=== PATIENT | male | born 1975 | race Two or more races ===

== ENCOUNTER → 2016-09-04 | Outpatient (REF) | payer OTHER | END | disposition home or self-care (01) | LOC: M SFHCLERA 12:44 | PROVIDERS: ATTEND Nurse Practitioner Family | DX: M10.9 Gout, unspecified (principal) ==

== ENCOUNTER → 2016-09-04 | Outpatient (CLI) | payer OTHER ==
--- NOTE | 2016-09-04 13:50 | REP ---
LUMBAR SPINE VIEWS, FIVE VIEWS: HISTORY: Left-sided low back pain. COMPARISON STUDY: October 02, 2006 FINDINGS: Lumbar vertebral body heights are preserved. Alignment is normal. There is minimal discogenic spurring anteriorly at L4-5, L2-3, and L1-2. There is a bone island in the L3 vertebral body. Pedicles and posterior elements are intact. There is no evidence of spondylolysis or spondylolisthesis. Psoas margins are symmetric. Sacrum and SI joints are unremarkable. IMPRESSION: Minimal discogenic spurring at several levels. Otherwise negative lumbar spine radiographs. Signed by Venancio Hunter MD 09/04/2016 03:05 P
--- NOTE | 2016-09-04 13:51 | REP ---
Left hip: Three views presented. History: Acute left-sided hip pain. Findings: The left femoral head is smooth and rounded and hip joint space is preserved. Periarticular soft tissues are unremarkable. There is a synovial inclusion cyst in the femoral neck. Head and neck junction morphology is normal. Impression: No acute bony abnormality. Signed by Venancio Hunter MD 09/04/2016 03:05 P
== END | disposition home or self-care (01) ==
LOC: M LRY 12:45
PROVIDERS: ATTEND Nurse Practitioner Family
DX: M47.816 Spondylosis without myelopathy or radiculopathy, lumbar region (principal)

== ENCOUNTER → 2019-06-01 | Outpatient (CLI) | payer OTHER ==
--- NOTE | 2019-06-01 18:54 | REP ---
PET/CT: History: Staging squamous cell carcinoma right retro molar trigone. Assess extent of neoplasm and lymph node involvement. Comparisons: Comparison soft-tissue neck CT study [facility] May 13, 2019. Comparison chest CT study from the same date. TECHNIQUE: 57 minutes following the intravenous injection of a 8.70 mCi dose of F-18 FDG, three-dimensional PET scintigraphy is acquired from the skull base to the proximal thighs. Triplanar noncontrast CT scanning is acquired through the same anatomic range for attenuation correction, and image registration with scan parameters optimized to minimize radiation exposure to the patient. PET scintigraphy and CT datasets were fused and displayed on a workstation with multiplanar and projection display capability. PET/CT Findings: There is quite hypermetabolic uptake in an area along the lateral tonsillar pillar on the right with maximum standard uptake value 22.58. Contralateral tonsillar hypermetabolic uptake is also seen on the left and a smaller area with maximum standard uptake value 7.53. There is mildly hypermetabolic anterior jugular christopher uptake in a small lymph node with maximum standard uptake value 3.49. This lymph node measures 12 mm in short axis dimension. No other hypermetabolic christopher uptake is seen in the head and neck soft tissues. In the chest there is no abnormal hilar or mediastinal hypermetabolic adenopathy. No abnormal pulmonary parenchymal hypermetabolic uptake is seen. No suspicious pulmonary nodule is appreciated. In the abdomen and pelvis, no abnormal hepatic or splenic uptake is seen. Normal adrenals are seen. No abnormal hypermetabolic uptake is seen in the abdomen or pelvis. Impression: There is bilateral lateral wall oral pharyngeal hypermetabolic uptake, right more avid and more extensive than left. There is a suspicious mildly hypermetabolic anterior jugular christopher focus on the right. No other abnormal hypermetabolic uptake. Electronically Signed by Venancio Hunter MD 06/01/2019 07:52 P
== END ==
LOC: M PLARAD 08:33
PROVIDERS: ATTEND Otolaryngology
DX: C06.2 Malignant neoplasm of retromolar area (principal)
CPT/HCPCS: 78815; A9552

== ENCOUNTER → 2019-06-03 | Outpatient (CLI) | payer OTHER ==
[~2019-06-03] MED LIST: NICO1KIT TOP
--- NOTE | 2019-06-04 09:44 | RADONC ---
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 STAGE: Clinical stage III, T3NxM0. 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 He presented to his dentist with an abnormality in his right retromolar trigone area and the dentist referred him to Dr. Abdul who is an oral surgeon in [facility] who biopsied the lesion. It was noted to be a squamous cell carcinoma. CT scans were ordered of the head and neck area in [place]. The CT scan of the neck and soft tissues on 05/13/2019 revealed a somewhat mass-like appearance of the left palatine tonsil which measured up to 1.3 cm. It was felt that this could possibly be related to an infectious or inflammatory process; however, clinical correlation was advised. The mass-like lesion in the right retromolar trigone was noted to measure approximately 2.9 x 1.5 cm and the mass in the left palatine tonsil measured up to 1.3 cm. In summary, a mass was seen clinically, biopsied and shown to be a squamous cell carcinoma in the right retromolar trigone measuring 1.[address] scan of the lung revealed changes consistent with chronic obstructive pulmonary disease. Numerous small lymph nodes were noted in the neck. A PET scan was ordered and the results are back today and that PET scan revealed bilateral lateral wall oropharyngeal hypermetabolic uptake on both sides with the right greater than the left. There was a suspicious hypermetabolic anterior jugular christopher focus on the right, but no other significant abnormal abnormalities noted. The patient saw Dr. Michael Harris who in turn has referred him to radiation oncology for evaluation. It should be noted that the squamous cell carcinoma was p16 positive. PAST MEDICAL HEALTH: The patient has a history of gout. PAST SURGICAL HEALTH: Cyst removal. ANESTHESIA COMPLICATIONS: Denied. FAMILY HISTORY OF CANCER: His mother had colon cancer but was treated and is currently in remission. He had an uncle on his father's side with cancer but he does not know the cell type. He had another uncle with lung cancer. SOCIAL HISTORY: The patient is and lives with his girlfriend who has come with him to this consultation. He smoked for 32 years about one pack per day. Drinking history: He drank pretty heavily in the past. He has never used recreational drugs. ALLERGIES: No known drug allergies/intravenous contrast dye, possible iodine. MEDICATIONS: He does not take any active medications. 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 REVIEW OF SYSTEMS: RESPIRATORY: Denies coughing, dyspnea, hemoptysis, hiccups, pleuritic chest pain or wheezing. PSYCHIATRIC: Denies delusions, hallucinations, depression, euphoria or mood swings. NEUROLOGIC: Denies headaches, disorientation, dizziness, gait changes, insomnia, memory loss, neuropathies, paralysis, seizures, sensory problems or stroke. NECK: Denies masses, muscle weakness, pain or problems with range of motion. He did notice some swelling in the posterior/retromandibular area. This prompted his seeking medical attention for the current situation leading to a biopsy and a diagnosis of squamous cell carcinoma. The lesion is somewhat painful but intermittently so. MUSCULOSKELETAL: Denies arthritis, bone pain, joint pain, muscle weakness, or range of motion issues. INTEGUMENTARY: Denies alopecia, blisters, bruising, dry skin, facial burning, problems with fingernails, photosensitivity, pruritus, rashes or urticaria. HEMATOLOGIC/LYMPHATIC: Denies easy bruising, lymph nodes. GENITOURINARY: Denies dysuria, frequency, hematuria, impotence, incontinence, nocturia, renal stone disease, retrograde ejaculation, scrotal swelling, urgency or urine color changes. GASTROINTESTINAL: Denies changes in bowel habits, constipation, diarrhea, heartburn, dyspepsia, hematemesis, hematochezia, hemorrhoids, melena, nausea, pain, cramping, early satiety or vomiting. HEENT: Denies ear pain, epistaxis, esophagitis, hearing difficulty. He does have dryness of the mouth. Denies oral bleeding. He has a dysgeusia with a strange taste in his mouth. Denies otitis, sinusitis, sputum production. He does have some stomatitis with altered taste. Denies tinnitus. ENDOCRINE: Denies diabetes, hot flashes, thyroid disease. CONSTITUTIONAL: Denies lack of appetite. He does note minimal fatigue. Denies fever, lethargy, malaise, night sweats, rigors, chills or weight changes. CARDIOVASCULAR: Denies arrhythmia, chest pain, dyspnea, edema, orthopnea, palpitations. ALLERGIC/IMMUNOLOGIC: Denies allergies or adverse reactions with the exception to the dye which he was given during a CT scan. PHYSICAL EXAMINATION: VITAL SIGNS: Height 69 inches, weight 220.2, temperature 98, pulse 110, respirations 134, diastolic 94, systolic 134, O2 saturation 97. HEENT: The patient appears to be normocephalic. Examination of the oral cavity however reveals a fungating and large mass extending in the retromolar area for approximately 3 cm and what appears to be some redness, irritation and induration up along the tonsillar pillar and up onto the soft palate. There is induration and fistula formation in this noted lesion. The left tonsillar area shows some erythematous areas over the tonsillar pillar and some vague induration in the left tonsil measuring less than 1 cm. Base of tongue reveals no obvious masses, but the tongue itself as a coat of thick malodorous area of what appears to be oral candidiasis. It scrapes soft somewhat with the tongue depressor but may be an early oral candidiasis infection. Lymphatics: No palpable discrete lymphadenopathy is appreciated in the cervical, supraclavicular, axillary or inguinal lymph node chains. Lungs are clear to auscultation and percussion. Heart regular without murmurs. Abdomen: Without evidence of hepatomegaly, masses, deep abdominal tenderness. Extremities: Without cyanosis, clubbing or edema. Neurologic examination: Grossly physiologic and nonfocal. IMPRESSION: Right-sided retromolar trigone squamous cell carcinoma clinically T3, N0, M0. The PET scan reveals areas of increased metabolic activity in the area of the tumor mass/retromolar trigone. There is also an area in the left palatine tonsillar region which is PET avid as well as to a lesser extent the right sided cervical lymph node at the angle of the mandible which appears to be hypermetabolic, and may represent early metastasis versus inflammation. PLAN OF RADIOTHERAPY: The patient has not been completely staged. I believe that we should determine whether or not the lymph node actually represents metastatic disease at this point. We should also evaluate the left tonsillar area. We know that the tumor involves the right retromolar trigone. I am sending the patient back to Dr. Harris to determine whether or not he would consider biopsying the tonsil/perhaps via tonsillectomy or other choices as per his discretion and consider biopsying the lymph node in the right cervical, upper cervical lymph node chain near the angle of the jaw, which is PET avid on his most recent scan. In addition, the patient will need to be evaluated for prophylactic dental care, and perhaps removal or extraction of teeth as per the direction of Dr. Abdul. He most likely will require local regional radiotherapy to help control the extent of his disease depending upon the outcome of future biopsies/and or resections. Also depending upon these results, he may benefit from chemotherapy, and a feeding tube. The indications, possible side effects as well as alternatives to radiotherapy have been explained to the patient. We are still in the stages of processing the tests he has had thus far and obtaining an opinion from Dr. Harris as to his available surgical options and will further explain the side effects of radiotherapy when we will be able to determine the extent and dose of radiotherapy required to control disease. Consults back to Dr. Harris and Dr. Abdul have been have been made. Thank you for referring this very fine gentleman to us and allowing us the opportunity of participation in his overall management. cc: Bhupendra Abdul, SERA Harris, MD Ml Forman, BEND SORTER KAYD
== END ==
LOC: M ONCR 13:08
PROVIDERS: ATTEND Radiology Radiation Oncology
DX: C06.2 Malignant neoplasm of retromolar area (principal)

== ENCOUNTER 2019-06-29 06:27 | Day surgery (SDC) | payer OTHER ==
[~2019-06-29] VITALS: Ht 175.3 cm; Wt 97.7 kg
[~2019-06-29 06:27] MED LIST changes: +FLUC150T PO; +LR 1,000 ML IV ONE; +dexameTHASONE 4 MG/ML 1ML VIAL (J1100) IV ONE
[2019-06-29] MEDS ORDERED: PROPOFOL 200 MG/20 ML VIAL As Ordered ONE ×2 (07:15→08:04)
[2019-06-29] MEDS ORDERED: METHYLENE BLUE 0.5% (5MG/ML) 10 ML AMP (PROVAYBLUE)(Q9968 PER 1MG) As Ordered ONE (08:03)
[2019-06-29] MEDS ORDERED: OXYMETAZOLINE NASAL SPRAY (AFRIN) As Ordered ONE (08:03)
[2019-06-29] MEDS ORDERED: LIDOCAINE W/EPINEPHRINE 1% 20ML VIAL As Ordered ONE (08:03)
[2019-06-29] MEDS ORDERED: ROCURONIUM BROMIDE 50 MG/5 ML VIAL As Ordered ONE ×2 (08:04→08:55)
[2019-06-29] MEDS ORDERED: LIDOCAINE 2% INJ 100 MG/5 ML SDV (FOR ANES.) As Ordered ONE (08:04)
[2019-06-29] MEDS ORDERED: MIDAZOLAM INJ 2 MG/2 ML VIAL (J2250) As Ordered ONE ×2 (08:05→10:40)
[2019-06-29] MEDS ORDERED: ONDANSETRON 4MG/2ML VIAL (J2405) As Ordered ONE (08:05)
[2019-06-29] MEDS ORDERED: dexameTHASONE 4 MG/ML 1ML VIAL (J1100) As Ordered ONE (08:05)
[2019-06-29] MEDS ORDERED: fentaNYL 100 MCG/2 ML INJECTION (J3010) As Ordered ONE ×2 (08:05→08:56)
[2019-06-29] MEDS ORDERED: ACETAMINOPHEN 1000MG 100ML IV BTL (OFIRMEV) (J0131 PER 10MG) As Ordered ONE (08:54)
[2019-06-29] MEDS ORDERED: METOPROLOL 5 MG/5 ML VIAL As Ordered ONE (09:14)
[2019-06-29] MEDS ORDERED: SUGAMMADEX SODIUM 500 MG/5 ML VIAL (BRIDION) As Ordered ONE (09:51)
[2019-06-29] MEDS ORDERED: oxyCODONE 5MG TAB PO PRN (10:45)
[2019-06-29] MEDS ORDERED: LR 1,000 ML IV SCH ×2 (10:45)
[2019-06-29] MEDS ORDERED: fentaNYL 100 MCG/2 ML INJECTION (J3010) IV PRN (10:45)
[2019-06-29] MEDS ORDERED: ONDANSETRON 4MG/2ML VIAL (J2405) IV PRN (10:45)
[2019-06-29] MEDS ORDERED: HYDROcodone/APAP LIQUID 7.5-325MG 15ML UDC (LORTAB ELIXIR) As Ordered ONE (11:23)
[2019-06-29] MEDS ORDERED: HYDROcodone/APAP LIQUID 7.5-325MG 15ML UDC (LORTAB ELIXIR) PO PRN (11:30)
[2019-06-29 13:55] VITALS: BP 113/58
[2019-07-06] MEDS ORDERED: HYDR1SOL (10:21)
[2019-07-23] MEDS ORDERED: PROC10TA4 PO (13:30)
--- NOTE | 2019-07-25 08:41 | RO ---
DATE OF PROCEDURE: 06/29/2019 PREPROCEDURE DIAGNOSIS: Squamous cell carcinoma of the right retromolar trigone. POSTPROCEDURE DIAGNOSIS: Squamous cell carcinoma of the right retromolar trigone. PROCEDURE: 1. Direct suspension microlaryngoscopy. 2. Left tonsillectomy. SURGEON: Dr. Michael Harris HOSPITAL ADMINISTRATIVE ASSISTANT: ANESTHESIA: General. CLINICAL PREAMBLE: This 43-year-old man presented to the office with a biopsy proven squamous cell carcinoma of the right retromolar trigone area. PET scan revealed hypermetabolic activity on both sides of the oropharynx including the left tonsil. He also has evidence of some activity in the right upper neck as well. In order to complete workup prior to treatment with chemo/radiation for his right retromolar trigone, management options including direct laryngoscopy with possible biopsy as well as excision of the left tonsil have been discussed with the patient to rule out other synchronous primary tumors. Patient understood and consented to the procedure. DESCRIPTION OF OPERATION: Patient was identified in preoperative holding and brought to the operating room in stable condition. In supine position on the operating room table, the patient received general anesthesia followed by oral tracheal intubation without incident. The patient was prepped and draped in the usual fashion for the procedure. Palpation of the oral cavity revealed a large mass over the right retromolar trigone. Some fullness was palpated over the left tonsil region. The upper alveolar ridge was then protected. Dedo-Pilling laryngoscope was introduced. We examined the mucosa of the oral cavity and oropharynx. Friable mass was noted over the right retromolar trigone area extending superior toward the soft palate. The base of tongue was clear of mucosal lesion. No friable tissue was noted over the left tonsil area. The supraglottis, glottis, hypopharynx, pyriform sinuses, and posterior cricoid region were found to be free of mucosal ulceration or mass lesion. At this time, the Dedo laryngoscope was then withdrawn. Attention was turned to perform a left tonsillectomy. The Brigido-Benson mouth gag was carefully inserted and suspended. The left tonsil was then medialized using curved Allis forceps. Using electrocautery, mucosal incision was made over the superior pole of the left tonsil region. The left tonsil capsule was identified and dissection was then carried out along this plane to successfully excise the left tonsil. Hemostasis was achieved using electrocautery. Minor oozing from the friable mass over the right retromolar trigone was then also controlled using electrocautery as well. At the end of the procedure, sponge and instrument counts were correct. No complication was noted. Estimated blood loss was approximately 100 mL. The specimen consisting of the left tonsil was then sent to pathology for further evaluation. General anesthesia was reserved and patient was extubated and brought to the recovery room in stable condition.
[2019-07-26] MEDS ORDERED: ALLO100T (09:07)
== END 2019-06-29 14:30 | disposition home or self-care (01) ==
LOC: M SDC 06:27
PROVIDERS: ATTEND Otolaryngology
DX: C06.2 Malignant neoplasm of retromolar area (principal); M10.9 Gout, unspecified
CPT/HCPCS: 31525; 42826; 88305; J0131; J1100; J2250; J2405; J3010; Q9968

== ENCOUNTER → 2019-07-06 | Outpatient (CLI) | payer OTHER ==
[~2019-07-06] MED LIST changes: +HYDR1SOL; +LIDOCAINE 1% MDV 20ML VIAL As Ordered ONE; -LR 1,000 ML IV ONE; -dexameTHASONE 4 MG/ML 1ML VIAL (J1100) IV ONE
[2019-07-06 11:10] VITALS: BP 131/93
--- NOTE | 2019-07-07 10:30 | REP ---
ULTRASOUND-GUIDED RIGHT JUGULODIGASTRIC LYMPH NODE BIOPSY The procedure was performed under the direct supervision of Dr. reagan. The patient has a history of A suspicious mildly hypermetabolic anterior jugular christopher focus on the right seen on a previous PET scan dated 06/01/2019. The risks and benefits of the procedure were explained to the patient and informed consent was obtained. The right jugulodigastric lymph node was localized using ultrasound guidance. The skin was prepped and draped in a sterile fashion. 1% lidocaine was used as a local anesthetic. Using ultrasound guidance six fine-needle aspirations were obtained using 25 gauge needles. The patient tolerated the procedure well and there were no immediate complications. After the appropriate amount of monitored convalescence the patient was discharged from the department. Electronically Signed by IVONNE Perdomo 07/06/2019 04:08 P Electronically Signed by Liang Reagan MD 07/07/2019 10:20 A
== END ==
LOC: M IRPRO 10:00
PROVIDERS: ATTEND Otolaryngology
DX: R59.0 Localized enlarged lymph nodes (principal)

== ENCOUNTER → 2019-07-27 | Outpatient (RCR) | payer OTHER ==
--- NOTE | 2019-07-09 07:14 | RADONC ---
RADIATION ONCOLOGY SIMULATION NOTE DATE: 07/08/2019 CHART #: [id number] Mr. Encarnacion was taken to the CT scan for CT simulation of his head and neck field. CT was accomplished without difficulty or discomfort. Radiation treatment planning is underway and radiation treatments will begin subsequently. An immobilization device was created without difficulty or discomfort. It will be used throughout the course of treatment. It included a mask. I was physically present throughout the course of CT simulation.
[~2019-07-27] MED LIST changes: +ALLO100T; -LIDOCAINE 1% MDV 20ML VIAL As Ordered ONE; +PROC10TA4 PO
== END ==
LOC: M ONCR 07-08 13:12
PROVIDERS: ATTEND Radiology Radiation Oncology
DX: C06.2 Malignant neoplasm of retromolar area (principal)

== ENCOUNTER → 2019-08-10 | Outpatient (POV) | payer OTHER ==
[~2019-08-10] VITALS: Ht 175.3 cm; Wt 96.8 kg
[2019-08-10 14:10] VITALS: BP 142/84
--- NOTE | 2019-08-11 09:45 | IRCOV ---
[facility] IR Consult Office Visit IR Consult Office Visit DATE: Aug 10, 2019 REASON FOR CONSULTATION/CHIEF COMPLAINT: Head and neck cancer. Currently getting radiotherapy. Needs G-tube. HISTORY OF PRESENT ILLNESS: 43-year-old male with squamous carcinoma of the oropharynx diagnosed 3 months ago presents for G-tube evaluation. Patient has already had all his teeth removed and part of his tonsil removed. He is currently receiving radiation treatment 3 out of 8 and concurrent chemotherapy. Patient complains of soreness in the mouth but denies difficulty eating or drinking. Patient is still reluctant to get a G-tube and feels he may be able to get through the treatments without needing one. However, he has lost weight. ALLERGIES: Please see below. HOME MEDICATIONS: Please see below. PAST MEDICAL HISTORY: None PAST SURGICAL HISTORY: Teeth removed Tonsil removed FAMILY HISTORY: Noncontributory. SOCIAL HISTORY: Stopped smoking 2 months ago. No alcohol or drugs. REVIEW OF SYSTEMS: Otherwise negative. PHYSICAL EXAMINATION: VITAL SIGNS: Please see below. GENERAL APPEARANCE: Appears well. Comfortable at rest. HEENT: No scleral icterus. RESPIRATORY: Normal breathing at rest. CARDIOVASCULAR: Normal rate. ABDOMEN: Non-distended. EXTREMITIES: Moving all 4 extremities. NEUROLOGICAL: Alert and oriented. PSYCHIATRIC: Appropriate to circumstance. LABORATORY DATA: 08/09/2019 hemoglobin 13.5 hematocrit 41.1 WBC 6.8 platelets 215 sodium 138 potassium 3.6 BUN 12 creatinine 0.97 bilirubin 0.5 AST 14 ALT 60 ALP 79 Imaging: I personally reviewed the PET/CT from May 2019. Stomach and GE junction in normal location. ASSESSMENT/PLAN: 43-year-old male with oropharyngeal cancer on chemoradiation presents with soreness in the mouth. I agree patient requires a G-tube. Patient is still reluctant to get a G-tube. We discussed the procedure and patient would like to hold off and feels he may get through treatment without needing a G- tube. We discussed this at length after which patient allowed us to schedule him for 3 weeks out. We advised him if he needs it sooner to call to get in sooner. I spent 30 minutes in consultation with the patient. Thank you for this referral. Cc Dr. Loretta Goldstein Allergies Coded Allergies: Contrast Media (Verified Allergy, Intermediate, hives, 06/28/19) Home Medications Scheduled PRN Prochlorperazine Maleate (Prochlorperazine Maleate), 10 MG PO Q6H PRN for NAUSEA Miscellaneous Medications Allopurinol (Allopurinol), (Reported) VS, I&O, 24H, Fishbone Vital Signs/I&O Vital Signs Date Time Temp Pulse Resp B/P (MAP) Pulse Ox O2 Delivery O2 Flow Rate FiO2 08/10/19 14:10 98.2 77 16 142/84 (103) 99 Room Air VIVIENNE KEITH MD Aug 11, 2019 09:45
== END ==
LOC: M IRPOV 14:02
PROVIDERS: ATTEND Radiology Diagnostic Radiology
DX: C10.9 Malignant neoplasm of oropharynx, unspecified (principal); Z92.3 Personal history of irradiation; Z92.21 Personal history of antineoplastic chemotherapy; Z72.0 Tobacco use

== ENCOUNTER → 2019-08-27 | Outpatient (RCR) | payer OTHER ==
--- NOTE | 2019-08-03 07:38 | RADONC ---
RADIATION ONCOLOGY PROGRESS NOTE DATE: 08/02/2019 CHART #: [id number] Mr. Encarnacion is presently at a dose of 1000 cGy to his head and neck region and is tolerating treatments quite well at this point with no complaints related to his radiation therapy. He is having no difficulty swallowing or pain at this point. REVIEW OF SYSTEMS: The patient's review of systems is noncontributory. Denies nausea, vomiting, fevers, chills, night sweats, diplopia, headaches, anxiety or depression, anorexia, weight loss, visual disturbances, chest pain, urinary or bowel difficulties, bone pain, or neurological problems. PHYSICAL EXAMINATION: The patient's skin is in good condition with no evidence of radiation change present. His oral cavity shows no evidence of mucositis. The remainder of his physical exam remains unchanged. Mr. Encarnacion is tolerating treatments quite well and radiation will continue as scheduled.
--- NOTE | 2019-08-10 09:48 | RADONC ---
RADIATION ONCOLOGY PROGRESS NOTE DATE: CHART #: [id number] Mr. Encarnacion is presently at a dose of 2000 cGy to his head and neck and is complaining of some discomfort upon swallowing. He reports that he has had sores develop in his mouth over the weekend. At this time, he has no other complaints related to his radiation therapy. REVIEW OF SYSTEMS: The patient's review of systems is positive for some discomfort upon swallowing and sores in his mouth, but is otherwise noncontributory. Denies nausea, vomiting, fevers, chills, night sweats, diplopia, headaches, anxiety or depression, anorexia, weight loss, visual disturbances, chest pain, urinary or bowel difficulties, bone pain, or neurological problems. PHYSICAL EXAMINATION: The patient's skin is in good condition with no evidence of radiation change present. There is no moist or dry desquamation. There is mild mucositis present in the patient's mouth. The remainder of his physical exam remains unchanged. The patient is continuing with radiation at this time. He was initially seen by Dr. Harding and a surgical consultation for placement of a PEG tube was not done. At that point, Dr. Harding had wanted to see whether or not he had difficulty with swallowing. At this point, however, he is already developing some difficulties just 2 weeks into treatment. In light of this, I have set him up to be seen by our interventional radiologis, Dr. Olivia, who is scheduling to see him tomorrow and placement of a PEG feeding tube can be done this week.
--- NOTE | 2019-08-16 15:05 | RADONC ---
RADIATION ONCOLOGY PROGRESS NOTE DATE: 08/16/2019 CHART NUMBER: [id number] Mr. Encarnacion is presently at a dose of 3000 cGy to his head and neck. The patient had been seen by Dr. Olivia, but at that time refused placement of the feeding tube. He now comes in today with a 8-pound weight loss in the last week. He is having more difficulty in discomfort with swallowing. He now appears willing to undergo the feeding tube. The patient's review of systems is positive for some difficulty swallowing as well as weight loss but is otherwise noncontributory. He denies nausea, vomiting, fevers, chills, night sweats, diplopia, headaches, anxiety or depression, anorexia, weight loss, visual disturbances, chest pain, urinary or bowel difficulties, bone pain, or neurological problems. PHYSICAL EXAMINATION: The patient's skin is in good condition with no evidence of moist or dry desquamation. His oral cavity shows mild to moderate mucositis present. There is no evidence of thrush. The remainder of his physical exam remains unchanged except for his weight loss. ASSESSMENT: The patient is tolerating treatments. I have gone over to Dr. Olivia's office and asked her to schedule placement of a feeding tube for this gentleman. He has been given dietary instructions as well. He has been encouraged to increase his use of Boost or Ensure. He has also been encouraged to continue with his liquid intake. I have asked him to discontinue use of Diflucan. We called the pharmacy and is better not to crush those capsules. He has been on it for well over 3 weeks at this point and I see no evidence of thrush on his oral examination.
--- NOTE | 2019-08-24 16:24 | RADONC ---
RADIATION ONCOLOGY PROGRESS NOTE DATE: 08/23/2019 CHART NUMBER: [id number] PROGRESS NOTE: Mr. Encarnacion is presently at a dose of 4000 cGy to his retromolar trigone and is tolerating treatments quite well at this point with no significant difficulties related to his radiation therapy other than some discomfort upon swallowing. REVIEW OF SYSTEMS: The patient's review of systems is positive for some sore throat and not feeling well overall. It is otherwise noncontributory. Denies nausea, vomiting, fevers, chills, night sweats, diplopia, headaches, anxiety or depression, anorexia, weight loss, visual disturbances, chest pain, urinary or bowel difficulties, bone pain, or neurological problems. PHYSICAL EXAMINATION: The patient's skin is in good condition with no evidence of moist or dry desquamation. His oral cavity shows some mucositis. The remainder of his physical exam remains largely unchanged. He has lost 2 pounds since last week. ASSESSMENT: Radiation is presently well tolerated and will continue as scheduled.
[~2019-08-27] MED LIST changes: +SILV40CR EXT
== END ==
LOC: M ONCR 07-29 09:07
PROVIDERS: ATTEND Radiology Radiation Oncology
DX: C06.2 Malignant neoplasm of retromolar area (principal)

== ENCOUNTER → 2019-09-07 | Outpatient (POV) | payer OTHER ==
[~2019-09-07] VITALS: Ht 175.3 cm; Wt 84.6 kg
[2019-09-07 15:15] VITALS: BP 114/73
--- NOTE | 2019-09-09 13:37 | IRPN ---
[facility] IR Progress Note IR Progress Note DATE: Sep 07, 2019 FOLLOW-UP: 2 weeks status post G-tube placement. Patient is using the G-tube at home without difficulty. ON EXAMINATION: G-tube site appears to be healing well. No redness, tenderness, discharge or leak. IMPRESSION: Doing well status post G-tube placement. All patient's questions were answered. Patient to call us should he have any issues with the G-tube. Thank you for this referral Cc Dr. Burgos CC Vahe Goldstein Allergies Coded Allergies: Contrast Media (Verified Allergy, Intermediate, hives, 06/28/19) VS,Fishbone, I+O VS, Fishbone, I+O Vital Signs Date Time Temp Pulse Resp B/P (MAP) Pulse Ox O2 Delivery O2 Flow Rate FiO2 09/07/19 15:15 97.4 97 18 114/73 (87) 95 Room Air VIVIENNE KEITH MD Sep 09, 2019 13:37
== END ==
LOC: M IRPOV 14:41
PROVIDERS: ATTEND Radiology Diagnostic Radiology
DX: Z43.1 Encounter for attention to gastrostomy (principal)

== ENCOUNTER 2019-09-14 09:15 | Outpatient (RCR) | payer OTHER ==
--- NOTE | 2019-08-30 16:00 | RADONC ---
RADIATION ONCOLOGY PROGRESS NOTE DATE: 08/30/2019 CHART NUMBER: [id number] Mr. Encarnacion is presently at a dose of 5000 cGy to his right retromolar trigone and overall is tolerating his treatments quite well with no significant difficulties related to his radiation therapy. His PEG tube was placed on Friday and he has just now begun using it to a limited degree. He has been given instructions on how to use it. The patient's review of systems is positive for difficulty swallowing and weight loss as well as a sore throat but is otherwise noncontributory. He denies nausea, vomiting, fevers, chills, night sweats, diplopia, headaches, anxiety or depression, anorexia, weight loss, visual disturbances, chest pain, urinary or bowel difficulties, bone pain, or neurological problems. PHYSICAL EXAMINATION: The patient has lost another 6 pounds and now weighs 194.6 pounds. His weight 1 month ago was 213.8 pounds. His skin shows some erythema and tanning present but no evidence of moist or dry desquamation. His oral cavity shows some moderate mucositis. The remainder of his physical exam remains unchanged. Mr. Encarnacion is tolerating his treatments quite well and radiation will continue as scheduled. He has again been given instructions on how to use his feeding tube. We have given him dietary instructions to increases in intake as well to stabilize his weight. In the meantime radiation will continue as scheduled.
--- NOTE | 2019-09-06 10:58 | RADONC ---
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 So far he has received a dose of 6000 cGy. He is tolerating treatment well. Because of significant weight loss, the PEG was placed two weeks ago. He said he is using two cans of Ensure, which I advised to increase. SYSTEMIC REVIEW: As mentioned significant weight loss and difficulty of swallowing. However, no complaints of nausea, vomiting, fever, chills. Most significant complaint is the pain in the neck with skin reactions. He is using Silvadene cream. I advised to soak before applying any Silvadene cream because there is thick crust formation over that area. PHYSICAL EXAMINATION: There is some dry desquamation reactive in both neck and there is crust formation over that area. He is using Silvadene cream. I advised him to soak before applying Silvadene cream. I also advised to exercise the jaw. He is edentulous. RECOMMENDATION: Mr. Encarnacion is tolerating the treatment quite well with the exception of weight loss, for which he had a PEG placement. Advised to increase the feeding and he will continue treatment as planned. MTDD
[~2019-09-14 09:15] MED LIST changes: -ALLO100T; +ALLO100T PO; +LIDO2SOL9 SSP
--- NOTE | 2019-09-14 11:31 | RADONC ---
RADIATION ONCOLOGY DATE: 09/13/2019 CHART NUMBER: [id number] Mr. 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 He is on simultaneous chemo RT. So far he has received a dose of 6800 cGy. He has developed a significant skin reaction in the neck, which he is using Silvadene. Because of the continuous weight loss, a PEG was placed about 3 weeks ago. However, he is only using two cans of Ensure, which I advised to increase. SYSTEMIC REVIEW: He has significant weight loss and some difficulty swallowing. He has no nausea, vomiting, fever, or chills. Most significant complaint at this point is the pain in the neck with a skin reaction for which he is using Silvadene cream. I advised to soak before applying Silvadene cream because there is a thick crust formation over the area. PHYSICAL EXAMINATION: He weighs 184.4 pounds. Blood pressure 104/69, pulse 92, respirations 16, temperature 99, 98% oxygen saturation in room air. There is dry and moist desquamation reaction in both neck and there is a crust formation over that area. Again, I advised him to use a soak before applying Silvadene cream and also advised exercise of the jaw. He is edentulous. ASSESSMENT AND RECOMMENDATION: Mr. 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 He has developed a significant skin reaction in the neck and he is applying Silvadene cream. Because of the continuous significant weight loss, PEG was placed. Advised to increase Ensure and treatment will continue and be completed after one more treatment. MTDD
[2019-09-16] MEDS ORDERED: SILV1CRE60 (17:09)
[2019-09-17] MEDS ORDERED: AZIT-12 PO (12:33)
[2019-09-17] MEDS ORDERED: CEFD300CAP PO (12:33)
--- NOTE | 2019-09-21 09:35 | RADONC ---
RADIATION ONCOLOGY TREATMENT SUMMARY DATE: 09/20/2019 CHART NUMBER: [id number] Mr. Encarnacion is 43-year-old white male with a stage III, T2N0M0, squamous cell carcinoma of his right retromolar trigone who presented to us for consideration of definitive external beam radiation therapy with IMRT/IGRT. We treated the patient to his right retromolar trigone for a dose of 7000 cGy delivered in 35 fractions of 200 cGy each over 49 elapsed days from 07/26/2019 through 09/14/2019. The patient's retromolar right retromolar trigone region was treated on a linear accelerator utilizing a 6 MV photon beam via IMRT/IGRT. The noninvolved lymph nodes were treated to a dose of 5000 cGy delivered in 25 fractions of 200 cGy each from 07/26/2019 through 08/30/2019. These were also treated on a linear accelerator with a 6 MV photon beam via IMRT. Mr. Encarnacion tolerated his treatments quite well. He completed therapy in my absence under the care of our local physician, Dr. Galdamez. The patient is scheduled to see me in 3 weeks for further followup and will continue to be followed by his other physicians as well. cc: Bhupendra Abdul, MD Ml Carrasco FNP
== END 2019-09-25 ==
LOC: M ONCR 09:15
PROVIDERS: ATTEND Radiology Radiation Oncology
DX: C06.2 Malignant neoplasm of retromolar area (principal)

== ENCOUNTER 2019-09-16 16:58 | Inpatient (IN) | payer OTHER ==
[~2019-09-16] VITALS: Ht 175.3 cm; Wt 84.8 kg
[2019-09-16] MEDS ORDERED: SILV1CRE60 (17:09)
[2019-09-16] MEDS ORDERED: NS 1,000 ML IV ONE (18:00)
[2019-09-16] MEDS ORDERED: ACETAMINOPHEN 325 MG/10.15 ML UDC PEG ONE (18:00)
--- NOTE | 2019-09-16 18:08 | REP ---
Portable chest x-ray: Single view. History: Sepsis. Shock. No comparison chest x-ray. Findings: There is an infiltrate in the left lung base question pneumonia. Remaining lung perez are clear. A gastrostomy feeding tube is noted in the left upper quadrant. The pleural angles are sharp. Cardiomediastinal silhouette is unremarkable. Impression: G tube noted in place in the upper abdomen. There is an infiltrate in the left base question pneumonia. Electronically Signed by Venancio Hunter MD 09/16/2019 06:00 P
[2019-09-16 18:19] LABS: VENOUS BASE EXCESS 5.5 (-2.0-2.0); VENOUS O2 SATURATION 69.2 % (60.0-80.0); VENOUS PARTIAL PRESSURE CO2 48.9 mmHg (38.0-50.0); VENOUS PARTIAL PRESSURE O2 33.9 mmHg (30.0-50.0); VENOUS STANDARD HCO3 28.7 MEQ/L; VENOUS TOTAL CO2 32.5 MEQ/L (24.0-28.0)
[2019-09-16 18:23] LABS: HEMATOCRIT 38.1 % (42.0-52.0); HEMOGLOBIN 12.7 g/dl (13.5-17.5); MEAN CORPUSCULAR HEMOGLOBIN 29.7 pg (27.0-33.0); MEAN CORPUSCULAR HGB CONC 33.3 g/dl (32.0-36.5); PLATELET COUNT, AUTOMATED 224 10^3/uL (150-450); RED BLOOD COUNT 4.28 10^6/uL (4.30-6.10); WHITE BLOOD COUNT 2.6 10^3/uL (4.0-10.0)
[2019-09-16 18:34] LABS: INR 1.1
[2019-09-16 18:39] LABS: EOSINOPHILS 1 % (0-3); LYMPHOCYTES 14 % (16-44); MONOCYTES 5 % (0-5); NEUTROPHILS 71 % (28-66); PLATELET ESTIMATE NORMAL (NORMAL)
[2019-09-16 18:49] LABS: INFLUENZA A AMPLIFICATION NEGATIVE (NEGATIVE); INFLUENZA B AMPLIFICATION NEGATIVE (NEGATIVE)
[2019-09-16 18:51] LABS: ALBUMIN 3.2 GM/DL (3.2-5.2); ALT/SGPT 33 U/L (12-78); BILIRUBIN,DIRECT 0.2 MG/DL (0.0-0.2); BILIRUBIN,TOTAL 0.9 MG/DL (0.2-1.0); BLOOD UREA NITROGEN 11 MG/DL (7-18); CALCIUM LEVEL 8.6 MG/DL (8.5-10.1); CARBON DIOXIDE LEVEL 32 MEQ/L (21-32); CHLORIDE LEVEL 98 MEQ/L (98-107); CREATININE FOR GFR 0.78 MG/DL (0.70-1.30); GLOMERULAR FILTRATION RATE > 60.0 (>60); GLUCOSE, FASTING 100 MG/DL (70-100); POTASSIUM SERUM 4.2 MEQ/L (3.5-5.1); SODIUM LEVEL 134 MEQ/L (136-145); TOTAL PROTEIN 6.8 GM/DL (6.4-8.2)
--- NOTE | 2019-09-16 19:00 | ECGEPIP ---
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
[2019-09-16] MEDS ORDERED: cefTRIAXone SOD 2 GM in D5W MINI-BAG PLUS 50 ML IV ONE (19:30)
[2019-09-16] MEDS ORDERED: AZITHROMYCIN INJ 500 MG, VIAL MATE ADAPTER 1 EACH in D5W 250 ML IV ONE (20:15)
[2019-09-16] MEDS ORDERED: PROCHLORPERAZINE 5 MG TAB (S0183) PO PRN (21:00)
[2019-09-16] MEDS ORDERED: allopurinoL 100 MG TAB PO PRN (21:00)
[2019-09-16] MEDS ORDERED: NS 2,000 ML IV ONE (21:00)
[2019-09-16] MEDS ORDERED: LIDOCAINE VISCOUS 2% SOLN 15ML UDC SSP PRN (21:00)
[2019-09-16] MEDS: SILVER SULFADIAZINE 1% CR 50 GM JAR EXT SCH (21:46)
[2019-09-17] MEDS: NS 1,000 ML IV SCH ×2 (01:56→12:00)
[2019-09-17] MEDS ORDERED: NS 1,000 ML IV SCH (02:00)
[2019-09-17 08:47] LABS: HEMATOCRIT 29.3 % (42.0-52.0); MEAN CORPUSCULAR HEMOGLOBIN 30.3 pg (27.0-33.0); MEAN CORPUSCULAR HGB CONC 33.4 g/dl (32.0-36.5); MEAN CORPUSCULAR VOLUME 90.7 fl (80.0-96.0); PLATELET COUNT, AUTOMATED 193 10^3/uL (150-450); RED BLOOD COUNT 3.23 10^6/uL (4.30-6.10)
[2019-09-17 08:53] LABS: HEMOGLOBIN 9.8 g/dl (13.5-17.5)
[2019-09-17] MEDS ORDERED: AZITHROMYCIN 250 MG TAB PO SCH (09:00)
[2019-09-17] MEDS ORDERED: cefTRIAXone SOD 2 GM in D5W MINI-BAG PLUS 50 ML IV SCH (09:00)
[2019-09-17] MEDS: SILVER SULFADIAZINE 1% CR 50 GM JAR EXT SCH (09:04)
[2019-09-17 09:10] LABS: BLOOD UREA NITROGEN 7 MG/DL (7-18); CALCIUM LEVEL 7.7 MG/DL (8.5-10.1); CARBON DIOXIDE LEVEL 28 MEQ/L (21-32); CHLORIDE LEVEL 106 MEQ/L (98-107); CREATININE FOR GFR 0.61 MG/DL (0.70-1.30); GLOMERULAR FILTRATION RATE > 60.0 (>60); GLUCOSE, FASTING 96 MG/DL (70-100); POTASSIUM SERUM 4.1 MEQ/L (3.5-5.1); SODIUM LEVEL 139 MEQ/L (136-145)
[2019-09-17 09:16] LABS: LYMPHOCYTES 14 % (16-44); MONOCYTES 15 % (0-5); NEUTROPHILS 71 % (28-66); PLATELET ESTIMATE NORMAL (NORMAL)
[2019-09-17] MEDS ORDERED: AZIT-12 PO (12:33)
[2019-09-17] MEDS ORDERED: CEFD300CAP PO (12:33)
--- NOTE | 2019-09-17 12:37 | DS.PDOC ---
Discharge Summary General Date of Admission Sep 16, 2019 at 20:01 Date of Discharge 09/17/19 Attending Physician: ROLA DECKER MD Discharge Summary PROCEDURES PERFORMED DURING STAY: None. ADMITTING DIAGNOSES: 1. Mycoplasma pneumonia. DISCHARGE DIAGNOSES: 1. Mycoplasma pneumonia. COMPLICATIONS/CHIEF COMPLAINT: Pneumonia. 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 Patient's workup was positive for mycoplasma pneumonia, clinically stable, on room air, having mild dyspnea and cough. Patient is hemodynamically stable and requesting to be discharged on oral antibiotics. There is no indication for continued inpatient treatment at this ti me, we'll discontinue patient on oral antibiotics to complete his regimen. Patient is advised to follow up with oncologist and PCP closely and return to the emergency department if symptoms worsen. Patient reports understanding and agrees with discharge plan. HOSPITAL COURSE: As above. DISCHARGE MEDICATIONS: Please see below. ALLERGIES: Please see below. PHYSICAL EXAMINATION: VITAL SIGNS: Please see below. GENERAL: No distress HEENT: Normocephalic, atraumatic, moist mucous membranes NECK: Right sided skin excoriation and breakdown from radiation therapy CARDIOVASCULAR EXAMINATION: S1, S2, no murmurs RESPIRATORY EXAMINATION: Scattered rhonchi, positive bowel sounds EXTREMITIES: Range of motion intact SKIN: As above NEUROLOGICAL EXAMINATION: Alert and oriented 3, no focal deficits PSYCHIATRIC EXAMINATION: Calm and cooperative LABORATORY DATA: Please see below. PROGNOSIS: Fair ACTIVITY: As tolerated. DIET: Tube Feeding DISCHARGE PLAN: Follow with oncologist and PCP within 1-2 weeks DISPOSITION: Home. DISCHARGE INSTRUCTIONS: 1. As above. DISCHARGE CONDITION: Stable. TIME SPENT ON DISCHARGE: Greater than 32 minutes. Vital Signs/I&Os Vital Signs Date Time Temp Pulse Resp B/P (MAP) Pulse Ox O2 Delivery O2 Flow Rate FiO2 09/17/19 07:13 96 94 09/17/19 07:00 98/61 (73) 09/17/19 06:51 17 Room Air 09/17/19 04:47 99.8 I&O- Last 24 Hours up to 6 AM 09/17/19 05:59 Intake Total 2150 ml Output Total 300 ml Balance 1850 ml Laboratory Data Labs 24H Laboratory Tests 2 09/16/19 17:12: Neutrophils (%) (Auto) , Lymphocytes # (Auto) , Nucleated Red Blood Cells % (auto) 0.0, Neutrophils 71H, Band Neutrophils 9, Lymphocytes (Manual) 14L, Monocytes (Manual) 5, Eosinophils (Manual) 1, Red Blood Cell Morphology NORMAL, Platelet Estimate NORMAL, Prothrombin Time 14.0, Prothromb Time International Ratio 1.10, Anion Gap 4L, Glomerular Filtration Rate > 60.0, Lactic Acid Level 1.0, Calcium Level 8.6, Total Bilirubin 0.9, Direct Bilirubin 0.2, Aspartate Amino Transf (AST/SGOT) 15, Alanine Aminotransferase (ALT/SGPT) 33, Alkaline Phosphatase 72, Total Protein 6.8, Albumin 3.2, Albumin/Globulin Ratio 0.89L 09/16/19 18:00: Blood Gas Bicarbonate Standard 28.7, Venous Blood pH 7.420, Venous Blood Partial Pressure CO2 48.9, Venous Blood Partial Pressure O2 33.9, Venous Blood Total Carbon Dioxide 32.5H, Venous Blood HCO3 31.0H, Venous Blood Oxygen Saturation 69.2, Venous Blood Base Excess 5.5H, Influenza Type A (RT-PCR) NEGATIVE, Influenza Type B (RT-PCR) NEGATIVE 09/16/19 20:53: Urine Color YELLOW, Urine Appearance CLEAR, Urine pH 6.0, Urine Specific [place] 1.026, Urine Protein NEGATIVE, Urine Glucose (UA) NEGATIVE, Urine Ketones 1+H, Urine Blood 1+H, Urine Nitrite NEGATIVE, Urine Bilirubin NEGATIVE, Urine Urobilinogen 0.2, Urine Leukocyte Esterase NEGATIVE, Urine WBC (Auto) 2, Urine RBC (Auto) 19H, Urine Hyaline Casts (Auto) 0, Urine Bacteria (Auto) NEGATIVE, Urine Squamous Epithelial Cells 0, Urine Mucus (Auto) SMALL, Urine Sperm (Auto) , Methicillin-Resist S.aureus DNA PCR NOT DETECTED 09/17/19 08:15: Neutrophils (%) (Auto) , Lymphocytes # (Auto) , Nucleated Red Blood Cells % (auto) 0.0, Neutrophils 71H, Lymphocytes (Manual) 14L, Monocytes (Manual) 15H, Red Blood Cell Morphology NORMAL, Platelet Estimate NORMAL, Anion Gap 5L, Glomerular Filtration Rate > 60.0, Calcium Level 7.7L CBC/BMP Laboratory Tests 09/16/19 17:12 09/17/19 08:15 Microbiology Microbiology 09/16/19 Blood Culture, Received Pending 09/16/19 Gram Stain - Final, Resulted 2/20/20 Sputum Culture, Resulted Pending 09/16/19 Respiratory Virus Panel (PCR) (SHAUN) - Final, Complete Mycoplasma Pneumoniae 09/16/19 Blood Culture, Received Pending Discharge Medications Scheduled Azithromycin (Azithromycin) 250 Mg Tablet, 250 MG PO DAILY Cefdinir (Cefdinir) 300 Mg Capsule, 1 CAP PO BID Silver Sulfadiazine (Silvadene) 400 Gm Cream..g., 400 GRAMS EXT TID for Apply to skin of neck Scheduled PRN Allopurinol (Allopurinol) 100 Mg Tablet, 100 MG PO DAILY PRN for GOUT, (Reported) PT STATES HE TAKES NEEDED FOR GOUT PAIN. Lidocaine HCl (Lidocaine HCl Viscous) 100 Ml Solution, 10 ML SSP QID PRN for PAIN, (Reported) Prochlorperazine Maleate (Prochlorperazine Maleate) 10 Mg Tablet, 10 MG PO Q6H PRN for NAUSEA Take 10 mg po q 6 hours prn nausea from chemotherapy Allergies Coded Allergies: Contrast Media (Verified Allergy, Intermediate, hives, 06/28/19) ROLA DECKER MD Sep 17, 2019 12:37
[2019-09-17 13:13] VITALS: BP 102/58
--- NOTE | 2019-09-17 13:58 | HPE ---
DATE OF ADMISSION: 09/16/2019 PRIMARY CARE PROVIDER: Sandra Forman. Currently has no primary care doctor as Sandra Forman has left the practice. CHIEF COMPLAINT: Cough and fever for 2 days. HISTORY OF PRESENT ILLNESS: This is a 43-year-old male diagnosed with moderately differentiated squamous cell carcinoma, P16 positive in April 2019, after complaining of a sore throat on the right public service director in February 2019 while eating almonds. Patient was seen by ENT surgeon Dr. Michael Harris. Pathology showed squamous cell cancer of the oropharynx and on CT chest with right lateral mass-like focus of oropharynx with left palatine tonsil. PET scan in May 2019 showed a right lateral tonsillar pillar hypermetabolic focus and mild hypermetabolic anterior jugular lymph node uptake with no other distant metastasis. Repeat CT in April showed no distant mets. Mild emphysema was noted. Patient subsequently underwent systemic chemotherapy and external beam radiation treatment after the excision of the left tonsil in June 2019. Patient had been on carboplatin/paclitaxel starting 07/26/2019 with worsening oral pain due to radiation and significant weight loss of about 40 pounds despite having a feeding tube and four cans of Boost daily. Patient has experienced significant mucositis from radiation and chemotherapy and currently on viscus Lidocaine with poor oral intake. He then presents to the emergency room today with a 2-day history of a fever of 100.7 to 100.8 at home. No medications were taken. Congestion in his throat with a dry cough, nonproductive of an sputum. No shortness of breath. Generalized weakness which he attributes to chemo and radiation and some chills. He denied any nausea or vomiting but he did have some diarrhea starting after dinnertime on Friday until 2 a.m. described as "a lot, watery, nonbloody, non mucousy", several times into the night with no medications taken. He otherwise denies any headache, nasal congestion, has been exposed to children with ear infection. His mother is his healthcare proxy. He is currently a FULL CODE. He is being admitted after being found to have a left basilar pneumonia. In the emergency room, patient was found to have a temperature of 103.1, pulse 128, sinus tachycardia, white count 2.6 but not neutropenic, blood cultures, sputum culture had been sent. Methicillin resistant Staphylococcus aureus (MRSA) screen has been sent. Patient otherwise denies any palpitations, lightheadedness, dizziness, nausea, vomiting, constipation, dysuria, urgency or frequency, polyphagia, polyuria, upper or lower extremity weakness, paresthesias. Patient complains of throat pain and sore throat described as 8 out of 10, slightly better with viscus lidocaine four times daily. He has been eating a soft diet with a feeding tube. 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 PAST SURGICAL HISTORY: Lower spine cyst at he age of 16. ALLERGIES: CONTRAST - shortness of breath and hives. HOME MEDICATIONS: - allopurinol 100 mg daily as needed for gout - viscus lidocaine 10 mL swish and spit four times a day as needed - Compazine 10 mg q 7 hourly as needed for nausea. - Silvadene topically to the neck three times a day SOCIAL HISTORY: Patient smoked a pack a day for 30 years, 30-pack year history of smoking, quit May 2019. Currently has no alcohol use. Previously worked in an office. Lives with his children. Patient is a FULL CODE. Mother is a healthcare proxy [phone]. Her name is Tenisha Encarnacion. FAMILY HISTORY: Mother is 65 diabetes, colon cancer diagnosed 2011. Father age 66, half sister, half brother alive and well. No medical problems. REVIEW OF SYSTEMS: Per History of present illness, 12-point system otherwise negative. PHYSICAL EXAMINATION: Temperature 103.1, pulse 128, respiratory 22, blood pressure 100/62, 98% on room air. Generally, patient is awake, alert, oriented times three, answering questions appropriately. Patient has a hoarse voice. Anicteric. No jaundice. Patient has significant erythema along the right neck. No thyromegaly or lymphadenopathy. Lungs are clear in the upper lobes. Some crackles at the left base. Heart: S1, S2, sinus tachycardia. Nondisplaced point of maximal impulse. Abdomen is soft, nontender, nondistended. Feeding tube without erythema. Without any tenderness. Positive bowel sounds times four quadrants. Extremities: No cyanosis, clubbing or pitting edema. LABORATORY DATA: White count 2.8, hemoglobin 2.7, hematocrit 38, platelet count 224, 71% neutrophils, 9 bands. Sodium 134, potassium 4.2, chloride 98, bicarbonate 32, BUN 11, creatinine 0.78, glucose 100, lactic acid of 1, calcium 8.6, T bilirubin 0.9, direct bilirubin 0.2, AST 15, ALT 33, alkaline phosphatase 72, total protein 6.8, albumin 3.2. Influenza A and B are negative. INR 1.1, PT 14. Blood culture pending. Sputum culture pending. Methicillin resistant Staphylococcus aureus (MRSA) screen, respiratory panel pending. Chest x-ray: Left basilar pneumonia. G-tube in the upper abdomen. ASSESSMENT/PLAN: Mr. Encarnacion is a 43-year-old male status post excision of the left tonsil with no malignancy noted. Squamous cell carcinoma of the oropharynx. Undergoing external beam radiation once weekly and carboplatin/paclitaxel that started in June 2019 with a feeding gastrostomy placed in July 2019. Presents to the emergency room with complaints of fever 100.7, to 100.8 at home for the past 2 days and a dry cough found to have left basilar pneumonia. Patient was not neutropenic and has been given IV ceftriaxone and azithromycin in the emergency room. ACTIVE ISSUES: 1. Left basilar pneumonia: Patient has been given IV ceftriaxone, azithromycin, intravenous fluids, Xopenex as needed. Patient is not hypoxic. Sputum culture is pending. Respiratory panel and methicillin resistant Staphylococcus aureus (MRSA) screen have been ordered. Repeat CBC in the morning. 2. Squamous cell CA of the oropharynx undergoing external beam radiation and carboplatin/paclitaxel chemotherapy. May resume patient's viscus lidocaine and topical Silvadene cream to the erythematous area on the neck three times a day. 3. Diet: Patient is tolerating a soft diet along with feeding tube. Distribution Associate will be consulted in the morning to adjust his regimen. Continue on prochlorperazine as needed for nausea. 4. History of gout: As needed. Allopurinol 5. CODE STATUS: FULL CODE. 6. Deep venous thrombosis (DVT) prophylaxis: Compression stocking. 7. Per family request, doctor Jaramillo is to be called by the morning attending physician. VERONICA
[2019-09-20 14:10] LABS: BODY FLUID CULTURE Not indicated. (.); LEGIONELLA ANTIGEN URINE Negative (Negative); ORGANISM ID Not indicated. (.); SPECIMEN SOURCE Urine (.); URINE STREP PNEUMONIAE ANTIGEN Negative (Negative)
== END 2019-09-17 13:30 | disposition home or self-care (01) | DRG 139 ==
LOC: M ED 16:58 → M ED INP 20:01
PROVIDERS: ADMIT General Practice; ATTEND Internal Medicine
DX: J15.7 Pneumonia due to Mycoplasma pneumoniae (principal); J43.9 Emphysema, unspecified; C14.0 Malignant neoplasm of pharynx, unspecified; Z93.1 Gastrostomy status; R63.4 Abnormal weight loss; Z87.891 Personal history of nicotine dependence; Z79.899 Other long term (current) drug therapy; Z91.041 Radiographic dye allergy status

== ENCOUNTER → 2019-10-03 | Outpatient (REF) | payer OTHER ==
[~2019-10-03] MED LIST changes: +AZIT-12 PO; +CEFD300CAP PO; +SILV1CRE60
== END ==
LOC: M SFHCLERA 14:33
PROVIDERS: ATTEND Physician Assistant
DX: R05 Cough (principal); J02.9 Acute pharyngitis, unspecified

== ENCOUNTER → 2019-10-20 | Outpatient (CLI) | payer OTHER ==
--- NOTE | 2019-10-25 13:22 | RADONC ---
RADIATION ONCOLOGY TELEHEALTH FOLLOWUP VISIT DATE OF SERVICE: 10/20/2019 Telehealth visit secondary to Coronavirus crisis. CHART NUMBER: [id number]. DIAGNOSIS: Squamous cell carcinoma of right retromolar trigone. STAGE: Clinical stage III, T3NxM0. ECOG PERFORMANCE STATUS : 0. FOLLOWUP NOTE: Mr. Encarnacion reports that he is feeling quite a bit better. He has not used his feeding tube for 3 weeks and has been able to swallow soft foods. He does continue to have discomfort upon swallowing and a sore tongue. He also continues to have xerostomia. Overall, however, he is feeling much better at this time. REVIEW OF SYSTEMS: The patient's review of systems is noted for xerostomia and discomfort upon swallowing but is otherwise noncontributory. He denies nausea, vomiting, fevers, chills, night sweats, diplopia, headaches, anxiety or depression, anorexia, weight loss, visual disturbances, chest pain, urinary or bowel difficulties, bone pain, or neurological problems. PHYSICAL EXAMINATION: Physical examination was deferred secondary to COVID-19 precautions. ASSESSMENT: Mr. Encarnacion is doing quite well and is improving from his radiation. I have instructed him to contact Dr. Michael Harris, his head and neck surgeon, and schedule routine appointments for laryngoscopic evaluation. I have scheduled the patient to see me again in 3 months for further followup. This will be either in person or if the crisis worsens once again a teleconference. I have given the patient my cell phone number and asked him to call me if I could be of any assistance in the meantime. We discussed the feeding tube at length. I asked him to follow his weight at home. If his weight remains stable for the next 2 weeks and he has not used the feeding tube, I have recommended removing it. It is a possible source of infection. At this time, however, I will defer to the scheduling and other issues with regard to COVID-19 precautions and his tube removal. Once again, the patient is scheduled see me again in 3 months. We are sending him an appointment, and he will be seeing his head and neck physicians, as well. cc: MD Michael Gomez, MD Ml Forman, SAFETY AND SECURITY OFFICER
== END ==
LOC: M ONCR 13:14
PROVIDERS: ATTEND Radiology Radiation Oncology
DX: Z11.59 Encounter for screening for other viral diseases (principal); Z20.828 Contact with and (suspected) exposure to other viral communicable diseases

== ENCOUNTER → 2019-11-03 | Outpatient (CLI) | payer OTHER ==
--- NOTE | 2019-11-03 10:24 | RADONC ---
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 ECOG PERFORMANCE STATUS: 0. FOLLOWUP NOTE: Mr. Encarnacion is a 44-year-old white male with the diagnosis of a squamous cell carcinoma of the right retromolar trigone who is presenting to me today for followup visit now 6 weeks post completion of external beam radiation therapy. The patient presents today complaining of thrush. He says he has a sore tongue and he has been given thrush medication recently and it apparently has not worked. He is now presenting in person to discuss this. He had been asking for renewal of his medication. REVIEW OF SYSTEMS: The patient's review of systems is positive for sore tongue when eating salty or spicy foods, but is otherwise noncontributory. Denies nausea, vomiting, fevers, chills, night sweats, diplopia, headaches, anxiety or depression, anorexia, weight loss, visual disturbances, chest pain, urinary or bowel difficulties, bone pain, or neurological problems. PHYSICAL EXAMINATION: The patient is a well-developed, well-nourished white male in no acute distress. HEENT Exam: Normocephalic, atraumatic. Extraocular movements are intact. The skin over the patient's head and neck region is in good condition with no evidence of moist or dry desquamation. The skin actually looks quite normal. Oral cavity examination is generally clear except in the right retromolar trigone high dose region which continues to have some mucositis present. There is no evidence of thrush. There is no evidence of recurrent disease. There is no nodularity. There is no lymphadenopathy present. ASSESSMENT: The patient is clinically NEELAM at this time. He will continue his close followup with his head and neck surgeon, Dr. Michael Harris, as well as with ELPIDIO Casey. I will schedule him for a routine followup in our office in six months' time. cc: SERA Lam MD Cindy Simpson, FNP
== END ==
LOC: M ONCR 09:56
PROVIDERS: ATTEND Radiology Radiation Oncology
DX: Z85.818 Personal history of malignant neoplasm of other sites of lip, oral cavity, and pharynx (principal); Z92.3 Personal history of irradiation

== ENCOUNTER → 2020-01-04 | Outpatient (CLI) | payer OTHER ==
--- NOTE | 2020-01-05 15:06 | REP ---
REASON: Oropharyngeal cancer. COMPARISON: CT/PET 06/01/2019. No recent prior CT examinations for comparison. Outside CT scans of the neck and chest 05/13/2019 reviewed. After the intravenous administration of 8.32 millicuries of FDG18, triplane whole body PET/CT was performed from the skull base to the mid thigh. The markedly abnormal hypermetabolic activity seen previously in the neck particularly the bilateral lateral wall oropharyngeal soft tissues has abated. There is no abnormal hypermetabolic activity seen in the neck, chest, abdomen or pelvis. IMPRESSION: Resolved abnormal hypermetabolic activity in the neck as described above. Negative PET/CT scan. Electronically Signed by Franklin Childress DO 01/05/2020 05:05 P
== END ==
LOC: M PLARAD 10:19
PROVIDERS: ATTEND Otolaryngology
DX: C06.2 Malignant neoplasm of retromolar area (principal)
CPT/HCPCS: 78815; A9552

== ENCOUNTER → 2020-01-12 | Outpatient (CLI) | payer OTHER ==
--- NOTE | 2020-01-13 14:44 | RADONC ---
RADIATION ONCOLOGY FOLLOWUP NOTE DATE: 01/12/2020 This is a telemedicine visit. The patient was informed of the risks including security breech, technological failure, inability to perform a comprehensive physical exam which could delay or prevent an accurate diagnosis, and potential complications from treatment decisions rendered over a telemedicine platform. The patient understands and consented to the use of telehealth services phone only. 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 Encarnacion is a very pleasant 44-year-old white male with the diagnosis of squamous cell carcinoma of the right retromolar trigone who is presenting to us today for routine followup visit 4 months post completion of external beam radiation therapy. The patient presents today reporting that he is doing extremely well. He has been seen by Dr. Harris already on three occasions for fiberoptic laryngoscopic evaluation. He has been told there is no visible cancer remaining. A PET/CT scan was done on 01/04/2020 and showed no evidence of hypermetabolic uptake. The patient also reports that he has had his PEG feeding tube removed and he is able to eat, although solid foods is still uncomfortable. He had his ear grow back as well. REVIEW OF SYSTEMS: The patient's review of systems is positive for difficulties still swallowing solid foods with some discomfort. It is otherwise noncontributory. Denies nausea, vomiting, fevers, chills, night sweats, diplopia, headaches, anxiety or depression, anorexia, weight loss, visual disturbances, chest pain, urinary or bowel difficulties, bone pain, or neurological problems. PHYSICAL EXAMINATION: Physical examination was deferred at this time as per telephone consultation for COVID precautions. He has already been seen by his head and neck surgeon and will continue to do so. ASSESSMENT: The patient is clinically NEELAM at this time. I have scheduled him to be see me in our office in 3 months' time. I will be retiring, but this way he is in our system and will have an additional physician to evaluate him. He will be seeing Dr. Joseph, who will be the permanent physician, who can then manage him through his years of followup. cc: Bhupendra Abdul, MD Ml Carrasco, ELPIDIO
== END ==
LOC: M ONCR 09:18
PROVIDERS: ATTEND Radiology Radiation Oncology
DX: C06.2 Malignant neoplasm of retromolar area (principal)

== ENCOUNTER → 2020-04-12 | Outpatient (CLI) | payer OTHER ==
--- NOTE | 2020-04-28 11:28 | RADONC ---
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 Stage III, T3 N0 M0. ECOG performance status is 0. Follow-up note: Mr. Encarnacion is a very pleasant 45-year-old white male with a diagnosis of a squamous cell carcinoma of the right retromolar trigone who is presenting to our office now seven months post completion of external beam radiation therapy. The patient presents today reporting that he is doing quite well with no complaints at this time related to his radiation therapy or disease other than a dry mouth. He reports this yi has grown back. He is able to swallow and eat. He is having no significant pain or discomfort. REVIEW OF SYSTEMS: Noncontributory. The patient denies nausea, vomiting, fevers, chills, night sweats, diplopia, headaches, anxiety, depression, anorexia, visual disturbances, chest pain, urinary or bowel difficulties, bone pain, or neurological problems. PHYSICAL EXAMINATION: GENERAL: The patient is a well-developed, well-nourished white male in no acute distress. HEENT: Normocephalic, atraumatic. Extraocular movements are intact. Oral cavity examination reveals no evidence of nodularity, ulceration or residual disease. LYMPH NODES: There is no palpable cervical, supraclavicular, infraclavicular or axillary lymphadenopathy present. LUNGS: Clear to auscultation and percussion. HEART: Regular rate and rhythm. ASSESSMENT: Patient is clinically NEELAM at this time. He is being seen by his neck and surgeon, Dr. Michael Harris every month and is therefore being discharge from our follow-up except on a p.r.n. basis. MTDD
== END ==
LOC: M ONCR 14:16
PROVIDERS: ATTEND General Practice
DX: C06.2 Malignant neoplasm of retromolar area (principal)

== ENCOUNTER → 2020-08-04 | Outpatient (CLI) | payer OTHER ==
[~2020-08-04] MED LIST changes: +LEVO50TA5 PO
[2020-08-04 09:39] LABS: FREE T3 2.9 PG/ML (2.2-4.0); FREE T4 1.19 NG/DL (0.76-1.46); THYROID STIMULATING HORMONE 9.15 uIU/ML (0.358-3.740)
== END ==
LOC: M LAB 07:53
PROVIDERS: ATTEND Otolaryngology
DX: C06.2 Malignant neoplasm of retromolar area (principal)

== ENCOUNTER → 2020-08-16 | Outpatient (CLI) | payer OTHER ==
[~2020-08-16] MED LIST changes: +E-Z-GAS II EFFERVESCENT PACKET (SODIUM BICARB./CITRIC ACID/SIMETHICONE) As Ordered ONE; +E-Z-HD 98% w/w 340GM SUSP BTL As Ordered ONE; +E-Z-PAQUE 96% w/w SUSP 176GM BTL As Ordered ONE
--- NOTE | 2020-08-16 10:33 | REP ---
INDICATION: DYSPHAGIA, UNSPECIFIED COMPARISON: 09/16/2019 TECHNIQUE: Portable AP view of the chest FINDINGS: The mediastinum and cardiac silhouette are stable and within normal limits for portable technique. The lung perez are clear without acute consolidation, effusion, or pneumothorax. Skeletal structures are intact. IMPRESSION: No acute cardiopulmonary process appreciated. <Electronically signed by Chaka Brizuela > 08/16/20 [id number]
== END ==
LOC: M RAD 08:27
PROVIDERS: ATTEND Otolaryngology
DX: R13.10 Dysphagia, unspecified (principal)

== ENCOUNTER → 2020-09-18 | Outpatient (CLI) | payer OTHER ==
[~2020-09-18] MED LIST changes: -E-Z-GAS II EFFERVESCENT PACKET (SODIUM BICARB./CITRIC ACID/SIMETHICONE) As Ordered ONE; -E-Z-HD 98% w/w 340GM SUSP BTL As Ordered ONE; -E-Z-PAQUE 96% w/w SUSP 176GM BTL As Ordered ONE
[2020-09-18 10:38] LABS: FREE T3 3.1 PG/ML (2.2-4.0); FREE T4 1.13 NG/DL (0.76-1.46)
[2020-09-18 11:10] LABS: THYROID PEROXIDASE ANTIBODY < 28.0 U/ML (<60.0)
== END ==
LOC: M LAB 08:58
PROVIDERS: ATTEND Otolaryngology
DX: E03.9 Hypothyroidism, unspecified (principal)

== ENCOUNTER 2020-09-20 08:30 | Outpatient (RCR) | payer OTHER | END 2020-09-24 | LOC: M PT 08:30 | PROVIDERS: ATTEND Otolaryngology | DX: M25.611 Stiffness of right shoulder, not elsewhere classified (principal) ==

== ENCOUNTER → 2020-10-09 | Outpatient (CLI) | payer OTHER ==
[2020-10-09 11:07] LABS: THYROID PEROXIDASE ANTIBODY < 28.0 U/ML (<60.0)
== END ==
LOC: M LAB 09:27
PROVIDERS: ATTEND Otolaryngology
DX: E03.9 Hypothyroidism, unspecified (principal)

== ENCOUNTER → 2020-10-25 | Outpatient (RCR) | payer OTHER | LOC: M PT 09-25 12:32 | PROVIDERS: ATTEND Otolaryngology | DX: M25.611 Stiffness of right shoulder, not elsewhere classified (principal) ==

== ENCOUNTER 2020-11-22 08:30 | Outpatient (RCR) | payer OTHER | END 2020-11-24 | LOC: M PT 08:30 | PROVIDERS: ATTEND Otolaryngology | DX: M25.612 Stiffness of left shoulder, not elsewhere classified (principal) ==

== ENCOUNTER 2020-12-06 09:15 | Outpatient (RCR) | payer OTHER ==
[2020-12-14] MEDS ORDERED: LEVO100C PO (13:17)
== END 2020-12-25 ==
LOC: M PT 09:15
PROVIDERS: ATTEND Otolaryngology
DX: M25.611 Stiffness of right shoulder, not elsewhere classified (principal)

== ENCOUNTER → 2021-03-21 | Outpatient (CLI) | payer OTHER ==
[~2021-03-21] MED LIST changes: +LEVO100C PO
[2021-03-21 17:09] LABS: FREE T3 2.7 PG/ML (2.2-4.0); FREE T4 1.06 NG/DL (0.76-1.46); THYROID STIMULATING HORMONE 2.5 uIU/ML (0.358-3.740)
== END ==
LOC: M LAB 15:15
PROVIDERS: ATTEND Otolaryngology
DX: E03.9 Hypothyroidism, unspecified (principal)

== ENCOUNTER → 2021-05-14 | Outpatient (CLI) | payer OTHER ==
[2021-05-14 08:48] LABS: BASO % 0.6 % (0.0-1.0); EOS # 0.1 10^3/uL (0.0-0.5); EOS % 1.3 % (0.0-3.0); HEMATOCRIT 45.2 % (42.0-52.0); HEMOGLOBIN 15.3 g/dl (13.5-17.5); LYMPH # 1.2 10^3/uL (1.5-5.0); LYMPH % 18.7 % (24.0-44.0); MEAN CORPUSCULAR HEMOGLOBIN 28.8 pg (27.0-33.0); MEAN CORPUSCULAR HGB CONC 33.8 g/dl (32.0-36.5); MONO # 0.7 10^3/uL (0.0-0.8); MONO % 10.5 % (2.0-8.0); NEUTROPHILS # 4.3 10^3/uL (1.5-8.5); NEUTROPHILS % 68.7 % (36.0-66.0); PLATELET COUNT, AUTOMATED 249 10^3/uL (150-450); RED BLOOD COUNT 5.32 10^6/uL (4.30-6.10); WHITE BLOOD COUNT 6.3 10^3/uL (4.0-10.0)
[2021-05-14 09:20] LABS: ERYTHROCYTE SEDIMENTATION RATE 6 mm/hr (0-15)
[2021-05-14 09:21] LABS: ALBUMIN 3.7 GM/DL (3.2-5.2); ALT/SGPT 49 U/L (12-78); BILIRUBIN,TOTAL 0.3 MG/DL (0.2-1.0); BLOOD UREA NITROGEN 14 MG/DL (7-18); CARBON DIOXIDE LEVEL 29 MEQ/L (21-32); CHLORIDE LEVEL 106 MEQ/L (98-107); CHOLESTEROL LEVEL 160 MG/DL (<200); CREATININE FOR GFR 0.99 MG/DL (0.70-1.30); GLOMERULAR FILTRATION RATE > 60.0 (>60); GLUCOSE, FASTING 102 MG/DL (70-100); HDL CHOLESTEROL 40 MG/DL (>40); LDL CHOLESTEROL 98 MG/DL (<100); NON-HDL-C 120 MG/DL; POTASSIUM SERUM 4.4 MEQ/L (3.5-5.1); RHEUMATOID FACTOR QUANT < 10.0 IU/ML (<15.0); SODIUM LEVEL 141 MEQ/L (136-145); TOTAL PROTEIN 6.8 GM/DL (6.4-8.2); TRIGLYCERIDES LEVEL 109 MG/DL (<150); URIC ACID 6.5 MG/DL (3.5-7.2)
== END ==
LOC: M LAB 08:00
PROVIDERS: ATTEND Nurse Practitioner Family
DX: Z00.00 Encounter for general adult medical examination without abnormal findings (principal); C05.9 Malignant neoplasm of palate, unspecified; Z13.220 Encounter for screening for lipoid disorders; Z12.5 Encounter for screening for malignant neoplasm of prostate; Z87.39 Personal history of other diseases of the musculoskeletal system and connective tissue; M25.541 Pain in joints of right hand; M25.542 Pain in joints of left hand

== ENCOUNTER → 2021-05-25 | Outpatient (CLI) | payer OTHER ==
[~2021-05-25] MED LIST changes: +CLOB0.057; +PERI12LIQ
--- NOTE | 2021-05-25 12:38 | REPVR ---
PROCEDURE INFORMATION: Exam: CT Neck Without Contrast Exam date and time: 05/25/2021 11:41 AM Age: 45 years old Clinical indication: Other: Oralpharyngeal CA TECHNIQUE: Imaging protocol: Computed tomography images of the neck without contrast. Radiation optimization: All CT scans at this facility use at least one of these dose optimization techniques: automated exposure control; mA and/or kV adjustment per patient size (includes targeted exams where dose is matched to clinical indication); or iterative reconstruction. COMPARISON: PT PET/CT Skull/mid thigh 01/04/2020 12:05 PM FINDINGS: Nasopharynx: Unremarkable. Oropharynx: Unremarkable. No significant tonsillar enlargement. Hypopharynx: Unremarkable. Larynx: Unremarkable. Normal epiglottis. Retropharyngeal space: Unremarkable. Submandibular/Parotid glands: Normal. Glands are normal in size. Thyroid: Normal. No enlarged or calcified nodules. Lymph nodes: Unremarkable. No lymphadenopathy. Trachea: Visualized trachea is unremarkable. Lungs: Unremarkable as visualized. Bones/joints: There is degenerative disc disease and spondylosis at C4/5 and C5/6. No acute fracture. Soft tissues: Unremarkable. No significant soft tissue swelling. IMPRESSION: No acute findings. Electronically signed by: Naz Naidu On 05/25/2021 12:37:55 PM
--- NOTE | 2021-05-25 12:43 | REPVR ---
PROCEDURE INFORMATION: Exam: CT Chest Without Contrast; Diagnostic Exam date and time: 05/25/2021 11:41 AM Age: 45 years old Clinical indication: Other: Oralpharyngeal CA TECHNIQUE: Imaging protocol: Diagnostic computed tomography of the chest without contrast. Radiation optimization: All CT scans at this facility use at least one of these dose optimization techniques: automated exposure control; mA and/or kV adjustment per patient size (includes targeted exams where dose is matched to clinical indication); or iterative reconstruction. COMPARISON: PT PET/CT Skull/mid thigh 01/04/2020 12:05 PM FINDINGS: Lungs: Hyperinflation, interstitial prominence, and trace right middle lobe airspace disease. 1 mm subpleural nodule in the left lower lobe, believed to be calcified (series 401: Image 72). Pleural spaces: No pleural effusion. Heart: Subtle coronary artery calcification. No cardiomegaly. Aorta: Normal caliber of the thoracic aorta. Lymph nodes: Subcentimeter lymph nodes. Upper abdomen: Fatty infiltration of the liver. Granuloma in the enlarged spleen measuring 13.6 cm in length. Punctate calcification contiguous with the medial gallbladder wall. Questionable wall thickening in the nondistended stomach. Bones/joints: Mild degenerative change. 4 mm bone island in the left T3 vertebral body. Marginal osteophytes. Soft tissues: Prominent mediastinal and epicardial fat. IMPRESSION: 1. No intrathoracic metastasis. 2. Additional findings as described above. Electronically signed by: Pramod Chavez On 05/25/2021 12:42:51 PM
== END ==
LOC: M RAD 11:03
PROVIDERS: ATTEND Nurse Practitioner Adult Health
DX: C10.9 Malignant neoplasm of oropharynx, unspecified (principal)

== ENCOUNTER → 2021-10-18 | Outpatient (CLI) | payer OTHER ==
[~2021-10-18] MED LIST changes: +CLOBETASOL; -FLUC150T PO; +FLUC150T9 PO; -PROC10TA4 PO; +PROC10TA5 PO; +TERB250T91
[2021-10-18 12:44] LABS: FREE T3 2.8 PG/ML (2.2-4.0); FREE T4 1.21 NG/DL (0.76-1.46); THYROID STIMULATING HORMONE 2.71 uIU/ML (0.358-3.740)
== END ==
LOC: M LAB 11:00
PROVIDERS: ATTEND Otolaryngology
DX: C06.2 Malignant neoplasm of retromolar area (principal)

== ENCOUNTER → 2021-10-25 | Outpatient (RCR) | payer OTHER | LOC: M PT 09-26 09:56 | PROVIDERS: ATTEND Otolaryngology | DX: Z85.818 Personal history of malignant neoplasm of other sites of lip, oral cavity, and pharynx (principal) ==

== ENCOUNTER → 2021-11-12 | Outpatient (CLI) | payer OTHER ==
[~2021-11-12] MED LIST changes: +BARIUM SULFATE 700 MG TABLET (E-Z-DISK) As Ordered ONE; +E-Z-PAQUE 96% w/w SUSP 176GM BTL As Ordered ONE; +VARIBAR NECTAR 40% w/v 240ML SUSP BTL As Ordered ONE; +VARIBAR PUDDING 40% w/v 230ML TUBE As Ordered ONE
== END ==
LOC: M RAD 11:08
PROVIDERS: ATTEND Otolaryngology
DX: R13.12 Dysphagia, oropharyngeal phase (principal)

== ENCOUNTER 2021-11-15 10:04 | Outpatient (RCR) | payer OTHER ==
[~2021-11-15 10:04] MED LIST changes: -BARIUM SULFATE 700 MG TABLET (E-Z-DISK) As Ordered ONE; -E-Z-PAQUE 96% w/w SUSP 176GM BTL As Ordered ONE; -VARIBAR NECTAR 40% w/v 240ML SUSP BTL As Ordered ONE; -VARIBAR PUDDING 40% w/v 230ML TUBE As Ordered ONE
== END 2021-11-24 ==
LOC: M ST 10:04
PROVIDERS: ATTEND Otolaryngology
DX: Z85.818 Personal history of malignant neoplasm of other sites of lip, oral cavity, and pharynx (principal); Z92.21 Personal history of antineoplastic chemotherapy

== ENCOUNTER → 2021-12-07 | Outpatient (REF) | payer OTHER ==
[2021-12-07 17:04] LABS: BASO % 0.5 % (0.0-1.0); EOS # 0.1 10^3/uL (0.0-0.5); EOS % 1.1 % (0.0-3.0); HEMATOCRIT 42.6 % (42.0-52.0); HEMOGLOBIN 14.3 g/dl (13.5-17.5); LYMPH # 1.1 10^3/uL (1.5-5.0); LYMPH % 18.7 % (24.0-44.0); MEAN CORPUSCULAR HEMOGLOBIN 28.5 pg (27.0-33.0); MEAN CORPUSCULAR HGB CONC 33.6 g/dl (32.0-36.5); MONO # 0.5 10^3/uL (0.0-0.8); MONO % 8.3 % (2.0-8.0); PLATELET COUNT, AUTOMATED 234 10^3/uL (150-450); RED BLOOD COUNT 5.01 10^6/uL (4.30-6.10); WHITE BLOOD COUNT 5.6 10^3/uL (4.0-10.0)
[2021-12-07 17:30] LABS: ALBUMIN 4.1 GM/DL (3.2-5.2); ALT/SGPT 55 U/L (12-78); BILIRUBIN,TOTAL 0.4 MG/DL (0.2-1.0); BLOOD UREA NITROGEN 13 MG/DL (7-18); C REACTIVE PROTEIN QUANTITATIV 0.79 MG/DL (0.00-0.30); CARBON DIOXIDE LEVEL 29 MEQ/L (21-32); CHLORIDE LEVEL 103 MEQ/L (98-107); GLOMERULAR FILTRATION RATE > 60.0 (>60); GLUCOSE, FASTING 90 MG/DL (70-100); POTASSIUM SERUM 3.9 MEQ/L (3.5-5.1); SODIUM LEVEL 137 MEQ/L (136-145); TOTAL PROTEIN 7.1 GM/DL (6.4-8.2); URIC ACID 6.5 MG/DL (3.5-7.2)
[2021-12-07 17:36] LABS: ERYTHROCYTE SEDIMENTATION RATE 8 mm/hr (0-15)
[2021-12-07 17:37] LABS: TOTAL 25(OH) VITAMIN D 9.6 NG/ML (30.0-100.0)
== END ==
LOC: M SFHCRHEU 13:05
PROVIDERS: ATTEND Internal Medicine Rheumatology
DX: M25.50 Pain in unspecified joint (principal); R21 Rash and other nonspecific skin eruption; H04.123 Dry eye syndrome of bilateral lacrimal glands; M1A.49X0 Other secondary chronic gout, multiple sites, without tophus (tophi)

== ENCOUNTER → 2022-01-24 | Outpatient (CLI) | payer OTHER | LOC: M WUC 13:02 | PROVIDERS: ATTEND Internal Medicine Rheumatology | DX: M25.50 Pain in unspecified joint (principal) ==

== ENCOUNTER → 2022-03-20 | Outpatient (CLI) | payer OTHER ==
[2022-03-20 14:37] LABS: CHOLESTEROL RISK RATIO 3.86 (<5); THYROID STIMULATING HORMONE 5.76 uIU/ML (0.358-3.740)
[2022-03-20 15:33] LABS: TOTAL 25(OH) VITAMIN D 53.7 NG/ML (30.0-100.0)
[2022-03-20 16:00] LABS: HEMOGLOBIN A1c 5.6 %
== END ==
LOC: M LAB 12:47
PROVIDERS: ATTEND Family Medicine
DX: E66.9 Obesity, unspecified (principal)

== ENCOUNTER → 2022-03-20 | Outpatient (CLI) | payer OTHER ==
[2022-03-21 16:09] LABS: IgG P18 AB Absent (.); IgG P23 AB Absent (.); IgG P28 AB Absent (.); IgG P30 AB Absent (.); IgG P39 AB Absent (.); IgG P41 AB Absent (.); IgG P45 AB Absent (.); IgG P66 AB Absent (.); IgG P93 AB Absent (.); IgM P23 AB Present (.); IgM P39 AB Absent (.); IgM P41 AB Absent (.); LYME IgG WB INTERPRETATION Negative (.); LYME IgM WB INTERPRETATION Negative (.)
== END ==
LOC: M LAB 12:44
PROVIDERS: ATTEND Nurse Practitioner Family
DX: L40.9 Psoriasis, unspecified (principal)

== ENCOUNTER → 2022-05-15 | Outpatient (CLI) | payer OTHER | LOC: M RAD 10:18 | PROVIDERS: ATTEND Nurse Practitioner | DX: C10.9 Malignant neoplasm of oropharynx, unspecified (principal) ==

== ENCOUNTER → 2022-06-06 | Outpatient (CLI) | payer OTHER ==
[2022-06-06 12:04] LABS: HEMATOCRIT 44.1 % (42.0-52.0); HEMOGLOBIN 14.4 g/dl (13.5-17.5); MEAN CORPUSCULAR HEMOGLOBIN 27.8 pg (27.0-33.0); MEAN CORPUSCULAR HGB CONC 32.7 g/dl (32.0-36.5); MEAN CORPUSCULAR VOLUME 85.1 fl (80.0-96.0); PLATELET COUNT, AUTOMATED 231 10^3/uL (150-450); RED BLOOD COUNT 5.18 10^6/uL (4.30-6.10); WHITE BLOOD COUNT 7.4 10^3/uL (4.0-10.0)
[2022-06-06 13:20] LABS: ALBUMIN 3.7 GM/DL (3.2-5.2); ALT/SGPT 53 U/L (12-78); BILIRUBIN,TOTAL 0.4 MG/DL (0.2-1.0); BLOOD UREA NITROGEN 12 MG/DL (7-18); CALCIUM LEVEL 9.1 MG/DL (8.5-10.1); CARBON DIOXIDE LEVEL 29 MEQ/L (21-32); CHLORIDE LEVEL 102 MEQ/L (98-107); CREATININE FOR GFR 0.94 MG/DL (0.70-1.30); GLOMERULAR FILTRATION RATE > 60.0 (>60); GLUCOSE, FASTING 96 MG/DL (70-100); POTASSIUM SERUM 4.1 MEQ/L (3.5-5.1); SODIUM LEVEL 138 MEQ/L (136-145); TOTAL PROTEIN 6.8 GM/DL (6.4-8.2)
[2022-06-06 14:05] LABS: HEPATITIS B SURFACE ANTIGEN NEGATIVE (NEGATIVE)
[2022-06-06 14:32] LABS: HEPATITIS B CORE ANTIBODY IGM NEGATIVE (NEGATIVE); HEPATITIS C VIRUS ABY INDEX 0.2 INDEX (<0.8)
[2022-06-06 14:33] LABS: HIV 1&2 SCREEN CENTAUR NEGATIVE (NEGATIVE)
== END ==
LOC: M WUC 10:12
PROVIDERS: ATTEND Nurse Practitioner Family
DX: Z79.899 Other long term (current) drug therapy (principal)

== ENCOUNTER → 2022-08-03 | Outpatient (CLI) | payer OTHER | LOC: M RAD 08:09 | PROVIDERS: ATTEND Orthopaedic Surgery | DX: M25.511 Pain in right shoulder (principal) ==

== ENCOUNTER → 2022-11-28 | Outpatient (CLI) | payer OTHER ==
[~2022-11-28] MED LIST changes: +LEVO125T4; +LIDO2SOBTL SSP; -LIDO2SOL9 SSP; +PROHANCE 279.3MG/ML 15ML VIAL As Ordered ONE; +PROHANCE 279.3MG/ML 5ML VIAL As Ordered ONE; +SALA1TAB PO
== END ==
LOC: M RAD 14:47
PROVIDERS: ATTEND Physical Medicine & Rehabilitation
DX: M48.01 Spinal stenosis, occipito-atlanto-axial region (principal)
CPT/HCPCS: 70553; 72156; A9576

== ENCOUNTER → 2023-03-17 | Outpatient (REF) | payer OTHER ==
[~2023-03-17] MED LIST changes: -PROHANCE 279.3MG/ML 15ML VIAL As Ordered ONE; -PROHANCE 279.3MG/ML 5ML VIAL As Ordered ONE
[2023-03-17 18:51] LABS: HEMOGLOBIN A1c 5.2 % (4.0-6.0)
[2023-03-17 19:04] LABS: ALBUMIN 3.7 G/DL (3.2-5.2); ALKALINE PHOSPHATASE 76 U/L (46-116); ALT/SGPT 47 U/L (7.0-40); AST/SGOT 17 U/L (<34); BILIRUBIN,TOTAL 0.3 MG/DL (0.3-1.2); BLOOD UREA NITROGEN 14 MG/DL (9-23); CALCIUM LEVEL 9.6 MG/DL (8.5-10.1); CARBON DIOXIDE LEVEL 31 MMOL/L (20-31); CHLORIDE LEVEL 102 MMOL/L (98-107); CHOLESTEROL LEVEL 157 MG/DL (<200); CHOLESTEROL RISK RATIO 3.74 (<5); CREATININE FOR GFR 0.95 MG/DL (0.70-1.30); GLOMERULAR FILTRATION RATE > 60.0 (>60); GLUCOSE, FASTING 88 MG/DL (60-100); HDL CHOLESTEROL 41.9 MG/DL (>40); LDL CHOLESTEROL 90.9 MG/DL (<100); NON-HDL-C 115.1 MG/DL; POTASSIUM SERUM 4.7 MMOL/L (3.5-5.1); SODIUM LEVEL 140 MMOL/L (136-145); THYROID STIMULATING HORMONE 4.108 uIU/ML (0.55-4.78); TOTAL PROTEIN 6.7 G/DL (5.7-8.2); TRIGLYCERIDES LEVEL 121 MG/DL (<150)
== END ==
LOC: M WUC 16:20
PROVIDERS: ATTEND Family Medicine
DX: E03.9 Hypothyroidism, unspecified (principal)

== ENCOUNTER → 2023-05-22 | Day surgery (SDC) | payer OTHER ==
[~2023-05-22] VITALS: Ht 175.3 cm; Wt 97.5 kg
[~2023-05-22] MED LIST changes: +LEVO100T5 PO; +LIDOCAINE 2% 100MG/5ML SDV (FOR ANES.) As Ordered ONE; +NS 1,000 ML IV ONE; +TIZA2TA; +propofoL 200 MG/20 ML VIAL As Ordered ONE
[2023-05-22 10:05] VITALS: TEMP 99.8
[2023-05-22 10:30] VITALS: BP 134/93; O2SAT 99
== END | disposition home or self-care (01) ==
LOC: M OPP 09:00
PROVIDERS: ATTEND Internal Medicine Gastroenterology
DX: Z12.11 Encounter for screening for malignant neoplasm of colon (principal); Z80.0 Family history of malignant neoplasm of digestive organs; C20 Malignant neoplasm of rectum; K63.89 Other specified diseases of intestine; E03.9 Hypothyroidism, unspecified; M10.9 Gout, unspecified; Z79.890 Hormone replacement therapy; Z79.899 Other long term (current) drug therapy; Z91.041 Radiographic dye allergy status; Z85.819 Personal history of malignant neoplasm of unspecified site of lip, oral cavity, and pharynx; Z80.1 Family history of malignant neoplasm of trachea, bronchus and lung

== ENCOUNTER → 2023-06-16 | Outpatient (CLI) | payer OTHER ==
[~2023-06-16] MED LIST changes: +GASTROGRAFIN SOLUTION 30ML As Ordered ONE; +ISOVUE-370 76% 100ML VIAL As Ordered ONE; -LIDOCAINE 2% 100MG/5ML SDV (FOR ANES.) As Ordered ONE; -NS 1,000 ML IV ONE; -propofoL 200 MG/20 ML VIAL As Ordered ONE
== END ==
LOC: M RAD 12:51
PROVIDERS: ATTEND Internal Medicine Gastroenterology
DX: C20 Malignant neoplasm of rectum (principal)
CPT/HCPCS: 71260; 74177; Q9963; Q9967

== ENCOUNTER → 2023-07-14 | Outpatient (CLI) | payer OTHER ==
[~2023-07-14] MED LIST changes: +CAPE1TAB2 PO; -GASTROGRAFIN SOLUTION 30ML As Ordered ONE; -ISOVUE-370 76% 100ML VIAL As Ordered ONE; +LIDO100S29 SSP; -LIDO2SOBTL SSP; +PROHANCE 279.3MG/ML 15ML VIAL As Ordered ONE; +PROHANCE 279.3MG/ML 5ML VIAL As Ordered ONE; +XELO150T PO
== END ==
LOC: M RAD 08:51
PROVIDERS: ATTEND Specialist
DX: C20 Malignant neoplasm of rectum (principal)
CPT/HCPCS: 72197; A9576

== ENCOUNTER → 2023-07-15 | Outpatient (CLI) | payer OTHER ==
[~2023-07-15] MED LIST changes: -PROHANCE 279.3MG/ML 15ML VIAL As Ordered ONE; -PROHANCE 279.3MG/ML 5ML VIAL As Ordered ONE
== END ==
LOC: M ONCR 14:24
PROVIDERS: ATTEND General Practice
DX: C20 Malignant neoplasm of rectum (principal); C06.2 Malignant neoplasm of retromolar area; Z71.2 Person consulting for explanation of examination or test findings; Z79.890 Hormone replacement therapy; Z79.899 Other long term (current) drug therapy; L59.8 Other specified disorders of the skin and subcutaneous tissue related to radiation; W88.8XXA Exposure to other ionizing radiation, initial encounter; Z91.041 Radiographic dye allergy status; Z92.3 Personal history of irradiation

== ENCOUNTER 2023-07-23 13:55 | Outpatient (RCR) | payer OTHER | END 2023-07-27 | LOC: M ONCR 13:55 | PROVIDERS: ATTEND General Practice | DX: Z51.0 Encounter for antineoplastic radiation therapy (principal); C20 Malignant neoplasm of rectum; C06.2 Malignant neoplasm of retromolar area ==

== ENCOUNTER → 2023-08-27 | Outpatient (RCR) | payer OTHER ==
[~2023-08-27] MED LIST changes: +MAGICMW SSP; +ONDA8TAB8 PO; -TIZA2TA; +TIZA2TA PO
== END ==
LOC: M ONCR 08-04 09:11
PROVIDERS: ATTEND General Practice
DX: Z51.0 Encounter for antineoplastic radiation therapy (principal); C20 Malignant neoplasm of rectum; C06.2 Malignant neoplasm of retromolar area

== ENCOUNTER 2023-09-16 09:14 | Outpatient (RCR) | payer OTHER ==
[2023-09-09 09:50] VITALS: BP 100/77; O2SAT 99
[~2023-09-16] VITALS: Ht 175.3 cm; Wt 96.5 kg
[~2023-09-16 09:14] MED LIST changes: +NYST-38 PO
== END 2023-09-25 ==
LOC: M ONCR 09:14
PROVIDERS: ATTEND General Practice
DX: Z51.0 Encounter for antineoplastic radiation therapy (principal); C20 Malignant neoplasm of rectum; C06.2 Malignant neoplasm of retromolar area

== ENCOUNTER → 2024-03-25 | Outpatient (CLI) | payer OTHER ==
[~2024-03-25] MED LIST changes: +FOLI1TAB11 PO; +GABA-1171 PO; +OMEP40CA4 PO; +ONDA-284 PO; -ONDA8TAB8 PO; +PRED10TA2 PO; +TIZA1TAB12 PO
== END ==
LOC: M PLARAD 12:27
PROVIDERS: ATTEND Physical Medicine & Rehabilitation
DX: M48.02 Spinal stenosis, cervical region (principal); M47.892 Other spondylosis, cervical region; M50.222 Other cervical disc displacement at C5-C6 level

== ENCOUNTER → 2024-06-22 | Outpatient (CLI) | payer OTHER ==
[~2024-06-22] VITALS: Ht 175.3 cm; Wt 103.7 kg
[~2024-06-22] MED LIST changes: +DEXA4TA PO; +GABA-284 PO
[2024-06-22 15:22] VITALS: BP 135/87; O2SAT 98
== END ==
LOC: M PAL 14:30
PROVIDERS: ATTEND Nurse Practitioner Adult Health
DX: G62.9 Polyneuropathy, unspecified (principal); C20 Malignant neoplasm of rectum; Z85.818 Personal history of malignant neoplasm of other sites of lip, oral cavity, and pharynx; Z51.5 Encounter for palliative care; Z92.21 Personal history of antineoplastic chemotherapy; Z92.3 Personal history of irradiation; Z79.890 Hormone replacement therapy; Z79.899 Other long term (current) drug therapy; Z91.041 Radiographic dye allergy status

== ENCOUNTER → 2024-07-26 | Outpatient (REF) | payer OTHER ==
[2024-07-26 17:55] LABS: BASO % 0.2 % (0.0-1.0); EOS # 0.1 10^3/uL (0.0-0.5); EOS % 0.6 % (0.0-3.0); HEMATOCRIT 30.7 % (42.0-52.0); HEMOGLOBIN 10.1 g/dl (13.5-17.5); LYMPH # 0.4 10^3/uL (1.5-5.0); MEAN CORPUSCULAR HEMOGLOBIN 28.9 pg (27.0-33.0); MEAN CORPUSCULAR HGB CONC 32.9 g/dl (32.0-36.5); MEAN CORPUSCULAR VOLUME 87.7 fl (80.0-96.0); MONO # 0.7 10^3/uL (0.0-0.8); MONO % 7.8 % (2.0-8.0); NEUTROPHILS # 7.2 10^3/uL (1.5-8.5); NEUTROPHILS % 85.6 % (36.0-66.0); PLATELET COUNT, AUTOMATED 431 10^3/uL (150-450); WHITE BLOOD COUNT 8.4 10^3/uL (4.0-10.0)
[2024-07-26 18:22] LABS: BLOOD UREA NITROGEN 11 MG/DL (9-23); CARBON DIOXIDE LEVEL 30 MMOL/L (20-31); CHLORIDE LEVEL 101 MMOL/L (98-107); CREATININE FOR GFR 0.77 MG/DL (0.70-1.30); GLOMERULAR FILTRATION RATE > 60.0 (>60); GLUCOSE, FASTING 83 MG/DL (60-100); POTASSIUM SERUM 4.6 MMOL/L (3.5-5.1); SODIUM LEVEL 137 MMOL/L (136-145)
== END ==
LOC: M LAB REF 17:24
PROVIDERS: ATTEND Nurse Practitioner Family
DX: Z93.2 Ileostomy status (principal)

== ENCOUNTER → 2024-07-30 | Outpatient (REF) | payer OTHER ==
[2024-07-30 15:57] LABS: BASO % 0.3 % (0.0-1.0); EOS # 0.1 10^3/uL (0.0-0.5); LYMPH # 0.4 10^3/uL (1.5-5.0); LYMPH % 5.5 % (24.0-44.0); MEAN CORPUSCULAR HEMOGLOBIN 28.5 pg (27.0-33.0); MEAN CORPUSCULAR HGB CONC 33.3 g/dl (32.0-36.5); MEAN CORPUSCULAR VOLUME 85.5 fl (80.0-96.0); MONO # 0.5 10^3/uL (0.0-0.8); MONO % 7.6 % (2.0-8.0); NEUTROPHILS # 5.7 10^3/uL (1.5-8.5); NEUTROPHILS % 85.2 % (36.0-66.0); PLATELET COUNT, AUTOMATED 444 10^3/uL (150-450); RED BLOOD COUNT 3.51 10^6/uL (4.30-6.10); WHITE BLOOD COUNT 6.7 10^3/uL (4.0-10.0)
[2024-07-30 16:29] LABS: BLOOD UREA NITROGEN 12 MG/DL (9-23); CALCIUM LEVEL 9.2 MG/DL (8.5-10.1); CARBON DIOXIDE LEVEL 30 MMOL/L (20-31); CHLORIDE LEVEL 100 MMOL/L (98-107); CREATININE FOR GFR 0.77 MG/DL (0.70-1.30); GLOMERULAR FILTRATION RATE > 60.0 (>60); GLUCOSE, FASTING 108 MG/DL (60-100); POTASSIUM SERUM 4.7 MMOL/L (3.5-5.1); SODIUM LEVEL 139 MMOL/L (136-145)
== END ==
LOC: M LAB REF 15:37
PROVIDERS: ATTEND Nurse Practitioner Family
DX: Z93.2 Ileostomy status (principal); C20 Malignant neoplasm of rectum

== ENCOUNTER → 2024-09-08 | Outpatient (CLI) | payer OTHER ==
[~2024-09-08] VITALS: Ht 175.3 cm; Wt 95.8 kg
[~2024-09-08] MED LIST changes: +FLOM0.4C39 PO; +GABA-1490 PO; +LOPE-39 PO; +OXYB5TAB14 PO
[2024-09-08 14:06] VITALS: BP 141/84; O2SAT 98
== END ==
LOC: M PAL 13:32
PROVIDERS: ATTEND Family Medicine
DX: C10.9 Malignant neoplasm of oropharynx, unspecified (principal); C20 Malignant neoplasm of rectum; Z92.3 Personal history of irradiation; Z92.21 Personal history of antineoplastic chemotherapy; Z79.891 Long term (current) use of opiate analgesic; Z79.899 Other long term (current) drug therapy; Z91.041 Radiographic dye allergy status

== ENCOUNTER → 2024-09-28 | Outpatient (REF) | payer OTHER | LOC: M LAB REF 16:29 | DX: R19.7 Diarrhea, unspecified (principal) ==

== ENCOUNTER → 2024-10-01 | Outpatient (CLI) | payer OTHER | LOC: M WUC 12:18 | DX: Z87.448 Personal history of other diseases of urinary system (principal) ==

== ENCOUNTER → 2024-11-11 | Outpatient (CLI) | payer OTHER ==
[~2024-11-11] MED LIST changes: +ISOVUE-370 76% 100ML VIAL As Ordered ONE
== END ==
LOC: M RAD 14:19
PROVIDERS: ATTEND Nurse Practitioner Family
DX: C20 Malignant neoplasm of rectum (principal)
CPT/HCPCS: 71260; 74177; Q9967

== ENCOUNTER → 2025-02-11 | Outpatient (CLI) | payer OTHER ==
[~2025-02-11] VITALS: Ht 175.3 cm; Wt 93.8 kg
[~2025-02-11] MED LIST changes: +DULO30CA9 PO; -FLOM0.4C39 PO; -ISOVUE-370 76% 100ML VIAL As Ordered ONE; -LEVO100C PO; +LEVO100C2 PO; +LIDO30CR18 TOP; +OXYC-517 PO; +TAMS-18 PO
[2025-02-11 14:57] VITALS: BP 101/70; O2SAT 97
== END ==
LOC: M PAL 14:24
PROVIDERS: ATTEND Physician Assistant
DX: Z51.5 Encounter for palliative care (principal); C20 Malignant neoplasm of rectum; C78.00 Secondary malignant neoplasm of unspecified lung; C10.9 Malignant neoplasm of oropharynx, unspecified; R52 Pain, unspecified; R11.0 Nausea; G62.9 Polyneuropathy, unspecified; Z79.890 Hormone replacement therapy; Z79.899 Other long term (current) drug therapy; Z91.041 Radiographic dye allergy status; Z92.21 Personal history of antineoplastic chemotherapy

== ENCOUNTER → 2025-03-04 | Outpatient (CLI) | payer OTHER ==
[~2025-03-04] MED LIST changes: +BENA25CA4 PO; +CLIN1SOL TOP; +ISOVUE-370 76% 100 ML VIAL As Ordered ONE; +MINO100C4 PO; +PRED50TA57 PO
== END ==
LOC: M RAD 13:14
PROVIDERS: ATTEND Specialist
DX: C20 Malignant neoplasm of rectum (principal)
CPT/HCPCS: 71260; 74177; Q9967

== ENCOUNTER → 2025-03-08 | Outpatient (CLI) | payer OTHER ==
[~2025-03-08] MED LIST changes: -ISOVUE-370 76% 100 ML VIAL As Ordered ONE
== END ==
PROVIDERS: ATTEND Physician Assistant
DX: Z51.5 Encounter for palliative care (principal); C20 Malignant neoplasm of rectum; C78.00 Secondary malignant neoplasm of unspecified lung; Z92.21 Personal history of antineoplastic chemotherapy; Z85.818 Personal history of malignant neoplasm of other sites of lip, oral cavity, and pharynx; Z79.891 Long term (current) use of opiate analgesic; Z91.041 Radiographic dye allergy status; Z79.899 Other long term (current) drug therapy

== ENCOUNTER → 2025-04-04 | Outpatient (CLI) | payer OTHER ==
[~2025-04-04] VITALS: Ht 175.3 cm; Wt 91.9 kg
[~2025-04-04] MED LIST changes: +AMOX875T PO; +AMOX875T2 PO
[2025-04-04 10:29] VITALS: BP 144/87; O2SAT 98
== END ==
LOC: M PAL 10:10
PROVIDERS: ATTEND Physician Assistant
DX: Z51.5 Encounter for palliative care (principal); C20 Malignant neoplasm of rectum; C78.00 Secondary malignant neoplasm of unspecified lung; Z92.21 Personal history of antineoplastic chemotherapy; Z85.818 Personal history of malignant neoplasm of other sites of lip, oral cavity, and pharynx; Z79.891 Long term (current) use of opiate analgesic; Z91.041 Radiographic dye allergy status; Z79.899 Other long term (current) drug therapy; Z79.83 Long term (current) use of bisphosphonates

== ENCOUNTER → 2025-05-16 | Outpatient (CLI) | payer OTHER ==
[~2025-05-16] VITALS: Ht 175.3 cm; Wt 93.6 kg
[~2025-05-16] MED LIST changes: +CAPE150T18 PO; +POTA-151 PO; -XELO150T PO
[2025-05-16 13:59] VITALS: BP 146/86; O2SAT 96
== END ==
LOC: M PAL 13:42
PROVIDERS: ATTEND Physician Assistant
DX: Z51.5 Encounter for palliative care (principal); C20 Malignant neoplasm of rectum; C78.00 Secondary malignant neoplasm of unspecified lung; C10.9 Malignant neoplasm of oropharynx, unspecified; R52 Pain, unspecified; R11.0 Nausea; Z79.52 Long term (current) use of systemic steroids; Z79.891 Long term (current) use of opiate analgesic; Z79.899 Other long term (current) drug therapy; Z92.21 Personal history of antineoplastic chemotherapy; Z91.041 Radiographic dye allergy status

== ENCOUNTER → 2025-05-17 | Outpatient (REF) | payer OTHER | LOC: M SFHCLERA 14:38 | PROVIDERS: ATTEND Family Medicine | DX: E03.9 Hypothyroidism, unspecified (principal) ==

== ENCOUNTER → 2025-06-02 | Outpatient (CLI) | payer OTHER ==
[~2025-06-02] MED LIST changes: +ISOVUE-370 76% 100 ML VIAL As Ordered ONE; +POTA-141 PO
== END ==
LOC: M RAD 09:46
PROVIDERS: ATTEND Specialist
DX: C18.9 Malignant neoplasm of colon, unspecified (principal); K80.20 Calculus of gallbladder without cholecystitis without obstruction
CPT/HCPCS: 71260; 74177; Q9967

== ENCOUNTER → 2025-06-21 | Outpatient (CLI) | payer OTHER ==
[~2025-06-21] MED LIST changes: -ISOVUE-370 76% 100 ML VIAL As Ordered ONE
== END ==
LOC: M PAL 11:00
PROVIDERS: ATTEND Physician Assistant
DX: Z51.5 Encounter for palliative care (principal); C20 Malignant neoplasm of rectum; C78.00 Secondary malignant neoplasm of unspecified lung; Z92.21 Personal history of antineoplastic chemotherapy; Z85.818 Personal history of malignant neoplasm of other sites of lip, oral cavity, and pharynx; Z79.891 Long term (current) use of opiate analgesic; Z91.041 Radiographic dye allergy status; Z79.899 Other long term (current) drug therapy; Z79.83 Long term (current) use of bisphosphonates